=== PATIENT | female | born 1960 | race Caucasian/White ===

== ENCOUNTER → 2018-08-22 06:58 | Outpatient (CLI) | payer OTHER, SELFPAY ==
[2018-08-22 08:27] LABS: Alanine Aminotransferase 26 IU/L (9-52); Albumin 4.1 g/dL (3.5-5.0); Albumin Globulin Ratio 1.4 (1.0-2.8); Alkaline Phosphatase 91 U/L (38-126); Aspartate Aminotransferase 26 IU/L (14-36); Bilirubin Total 0.5 mg/dL (0.2-1.3); Blood Urea Nitrogen 14 mg/dL (7-17); Calcium 9.1 mg/dL (8.4-10.2); Carbon Dioxide 26 mmol/L (22-32); Chloride 103 mmol/L (98-107); Cholesterol 251 mg/dL (140-199); Estimated Glomerular Filt Rate > 60.0 mL/min (>60); Globulin 2.9 g/dL (1.7-4.1); Glucose 186 mg/dL (70-100); HDL Cholesterol 40 mg/dL (40-60); HEMOLYSIS < 15 (0-50); LDL Cholesterol Calculated 149 mg/dL (<100); Sodium 140 mmol/L (137-145); Triglycerides 309 mg/dL (35-150)
[2018-08-22 08:57] LABS: Creatinine Urine Random 51.9 mg/dL
[2018-08-22 09:12] LABS: Microalbumin Urine Random 31.4 mg/dL (0-1.6)
== END ==
PROVIDERS: PCP Family Medicine; Visit Provider Family Medicine
DX: E11.65 Type 2 diabetes mellitus with hyperglycemia (principal); E66.9 Obesity, unspecified; E78.5 Hyperlipidemia, unspecified; I10 Essential (primary) hypertension
CPT/HCPCS: 36415; 80053; 80061; 82043; 82570; 83036

== ENCOUNTER 2018-11-24 18:07 | Emergency (ER) | payer OTHER, SELFPAY ==
[2018-11-24 18:54] VITALS: BP 147/79; PULSE 88; RESP 18; TEMP 37.9; O2SAT 96; BMI 38.9
--- NOTE | 2018-11-24 21:44 | ED.SKABFB ---
HPI - Skin/Abscess/Foreign Bdy General Chief complaint: Skin/Abscess/Foreign Body Stated complaint: LEFT SIDE OF NECK HEAD SORE Time Seen by Provider: 11/24/18 21:43 Source: patient Mode of arrival: ambulatory Limitations: no limitations History of Present Illness HPI narrative: patient is a 58-year-old female who presents with neck swelling. she says it started yesterday with a small pimple it has doubled in size. No drainage. She does have low-grade fever here. It is non erythematous. She states that she does have a history of sepsis with group B strep from a vaginal source. MD complaint: abscess/boil Onset (ago): day(s) (2) Location: neck ( Posterior left) Severity: moderate Quality: aching Pain Consistency: constant Related Data Previous Rx's Medication Instructions Recorded simvastatin 20 mg PO QHS #90 tab 09/27/17 citalopram 40 mg PO Q DAY #90 tab 12/20/17 metformin 1,000 mg PO BIDCC #180 tab 04/15/18 glimepiride 4 mg tablet 8 mg PO Q DAY #180 tab 08/11/18 lisinopril 5 mg tablet 5 mg PO DAILY #90 tab 08/22/18 empagliflozin 10 mg tablet 10 mg PO DAILY #30 tab 09/03/18 oxycodone-acetaminophen [Percocet] 1 tab PO Q4-6H PRN #10 tab 11/25/18 sulfamethoxazole-trimethoprim 1 tab PO BID #14 tab 11/25/18 [Bactrim DS] Allergies Allergy/AdvReac Type Severity Reaction Status Date / Time No Known Drug Allergies Allergy Verified 11/24/18 18:59 Review of Systems Review of Systems GENERAL: Denies chills, fatigue, malaise, fever, sweats, travel HEENT: Denies sinus pain, ear pain, sore throat, difficulty swallowing, neck pain RESPIRATORY: Denies dyspnea, cough, wheezing, hemoptysis, sputum. CARDIOVASCULAR: Denies chest pain, palpitations, orthopnea, edema GASTROINTESTINAL: Denies nausea, vomiting, abdominal pain, diarrhea, constipation, melena. : Denies dysuria, frequency, incontinence, hematuria, urinary retention, flank pain. MUSCULOSKELETAL: Denies weakness, joint pain, or bony pain SKIN: see HPI NEUROLOGIC: Denies weakness, dizziness, headache, numbness, change in speech, confusion PSYCHIATRIC: No concerning psychosocial issues. 12 point review of systems is negative except for those stated above and HPI [facility] Medical History Depression (Chronic 1997) Diabetes mellitus (Chronic 2009) Hyperlipidemia (Chronic) Hypertriglyceridemia (Chronic) Obesity (Chronic) Shoulder pain (Chronic 2014) Ankle fracture (Resolved 1977) Chicken pox (Resolved 1967) Group B streptococcal infection (Resolved 04/2014) History of heavy periods (Resolved) History of heavy periods (Resolved 1979) Irregular periods/menstrual cycles (Resolved 1989) Kidney stones (Resolved 1999) Normal Papanicolaou smear (Resolved) Uterine cancer (Resolved 2005) Surgical History Anesthesia (Resolved) History of surgery (Resolved 04/2014) History of third molar tooth extraction (Resolved 1973) Status post hysterectomy (Resolved 09/2006) Family History Father Cancer Lung cancer Grandfather Smoker Heart disease Occupational exposure to environmental pollution Grandmother Cancer Mother Cancer Ovarian cancer Breast cancer Sister Age: 61 Heart disease History of heart bypass surgery Diabetes mellitus Social History Smoking Status: Never smoker Family History Father Cancer Lung cancer Grandfather Smoker Heart disease Occupational exposure to environmental pollution Grandmother Cancer Mother Cancer Ovarian cancer Breast cancer Sister Age: 61 Heart disease History of heart bypass surgery Diabetes mellitus Social History Smoking Status: Never smoker Exam Initial Vital Signs Initial Vital Signs: Vital Signs Temperature 100.3 F H 11/24/18 18:54 Pulse Rate 88 11/24/18 18:54 Respiratory Rate 18 11/24/18 18:54 Blood Pressure 147/79 H 11/24/18 18:54 Pulse Oximetry 96 11/24/18 18:54 GENERAL: Overweight well-appearing female no acute distress HEENT: Head atraumatic,EOMI, pupils reactive, CARDIOVASCULAR: Regular rate and rhythm without murmurs, rubs or gallops. RESPIRATORY: Breath sounds equal bilaterally, no wheezes rales or rhonchi. ABDOMEN: Soft, nontender. Normoactive bowel sounds all 4 quadrants. No guarding or rebound. EXTREMITIES: Normal range of motion, no clubbing or edema. Neurovascularly intact NEUROLOGICAL: Alert and oriented x4.Normal gait and speech. SKIN: swelling left posterior neck and base of skull 7 cm x 5 cm. Non erythematous it is fluctuant no induration. There is a small scab with minimal surrounding erythema to the scab no drainage. Procedures Abscess I/D Site: scalp Side (if applicable): left Local Anesthetic: lidocaine 2% and with epi Amount of anesthesia used (mL): 5 Technique: incised with #11 blade Amount of fluid expressed (mL): 1 Irrigation: No Packing used?: none Complications: pain and bleeding Course Orders Ordered: ED Orders 11/24/18 23:01 Blood Culture Stat Complete Blood Count AUTO DIFF Stat Comprehensive Metabolic Panel Stat Lactate (Lactic Acid) Stat Procalcitonin Stat 11/25/18 00:48 Wound Culture and Gram Stain Stat Discontinued Medications Sodium Chloride (Normal Saline 0.9%) 1,000 mls @ 1,000 mls/hr IV CONT PERICO Last Infusion: 11/25/18 00:48 Dose: 0 mls/hr Admin: 11/24/18 23:14 Dose: 1,000 mls/hr Ketorolac Tromethamine (Toradol) 30 mg IV NOW ONE Stop: 11/24/18 23:40 Last Admin: 11/24/18 23:43 Dose: 30 mg Oxycodone/Acetaminophen (Endocet 5/325 Prepack) 1 bottle MISC SEEINSTR ONE Stop: 11/25/18 00:24 Last Admin: 11/25/18 00:38 Dose: 1 bottle Trimethoprim/Sulfamethoxazole (Bactrim Ds Prepack) 1 bottle MISC SEEINSTR ONE Stop: 11/25/18 00:24 Last Admin: 11/25/18 00:38 Dose: 1 bottle Vital Signs - 8 hr 11/24/18 23:00 11/25/18 00:49 Temperature 98.4 F Pulse Rate 83 83 Respiratory Rate 18 16 Blood Pressure 126/66 Pulse Oximetry 99 99 MDM - Skin/Abscess/Foreign Bdy Lab Data Attestation: I reviewed the patient's lab results. Result diagrams: 11/24/18 23:01 11/24/18 23:01 Lab Results 11/24/18 11/24/18 11/24/18 Range/Units 23:01 23:01 23:01 WBC 9.9 (4.5-11.0) X10^3/uL RBC 4.59 (4.0-5.2) X10^6/uL Hgb 13.5 (12.0-16.0) g/dL Hct 39.9 (36-46) % MCV 87.0 (80-100) fL MCH 29.4 (26-34) PG MCHC 33.8 (30-36) % RDW 13.9 (11.6-14.8) % Plt Count 224 (150-400) X10^3/uL Neut % (Auto) 76.9 H (50-75) % Lymph % (Auto) 12.2 L (25-40) % [place] % (Auto) 6.7 (3-14) % Eos % (Auto) 3.4 (2-4) % Baso % (Auto) 0.8 (0-2) % Neut # (Auto) 7700 H (1736-4344) /uL Lymph # (Auto) 1200 (1623-8986) /uL [place] # (Auto) 700 (0-900) /uL Eos # (Auto) 300 (0-450) /uL Baso # (Auto) 100 (0-100) /uL Sodium 134 L (137-145) mmol/L Potassium 4.5 (3.4-5.1) mmol/L Chloride 99 (98-107) mmol/L Carbon Dioxide 27 (22-32) mmol/L BUN 18 H (7-17) mg/dL Creatinine 0.50 L (0.52-1.04) mg/dL Estimated GFR > 60.0 (>60) mL/min BUN/Creatinine Ratio 36.0 H (6-22) Glucose 192 H (70-100) mg/dL Lactate (0.7-2.1) mmol/L Calcium 9.5 (8.4-10.2) mg/dL Total Bilirubin 0.7 (0.2-1.3) mg/dL AST 24 (14-36) IU/L ALT 24 (9-52) IU/L Alkaline Phosphatase 91 (38-126) U/L Total Protein 7.4 (6.3-8.2) g/dL Albumin 4.2 (3.5-5.0) g/dL Globulin 3.2 (1.7-4.1) g/dL Albumin/Globulin Ratio 1.3 (1.0-2.8) Procalcitonin < 0.05 (<0.5) ng/mL 11/24/18 Range/Units 23:01 WBC (4.5-11.0) X10^3/uL RBC (4.0-5.2) X10^6/uL Hgb (12.0-16.0) g/dL Hct (36-46) % MCV (80-100) fL MCH (26-34) PG MCHC (30-36) % RDW (11.6-14.8) % Plt Count (150-400) X10^3/uL Neut % (Auto) (50-75) % Lymph % (Auto) (25-40) % [place] % (Auto) (3-14) % Eos % (Auto) (2-4) % Baso % (Auto) (0-2) % Neut # (Auto) (9540-5549) /uL Lymph # (Auto) (1465-3139) /uL [place] # (Auto) (0-900) /uL Eos # (Auto) (0-450) /uL Baso # (Auto) (0-100) /uL Sodium (137-145) mmol/L Potassium (3.4-5.1) mmol/L Chloride (98-107) mmol/L Carbon Dioxide (22-32) mmol/L BUN (7-17) mg/dL Creatinine (0.52-1.04) mg/dL Estimated GFR (>60) mL/min BUN/Creatinine Ratio (6-22) Glucose (70-100) mg/dL Lactate 1.2 (0.7-2.1) mmol/L Calcium (8.4-10.2) mg/dL Total Bilirubin (0.2-1.3) mg/dL AST (14-36) IU/L ALT (9-52) IU/L Alkaline Phosphatase (38-126) U/L Total Protein (6.3-8.2) g/dL Albumin (3.5-5.0) g/dL Globulin (1.7-4.1) g/dL Albumin/Globulin Ratio (1.0-2.8) Procalcitonin (<0.5) ng/mL MDM Narrative Medical decision making narrative: very minimal drainage from I&D. There was a small amount of pus which was sent for culture. Discussed with patient may need more time in in drainage at a later date. 2 different places were cut, And still no drainage. patient will be treated with antibiotics. She does not appear septic. I do suspect that there will be drainage from this area at some time. Discharge Plan Departure Patient Disposition: Home Clinical Impression: Abscess of skin and subcutaneous tissue Qualifiers: Site of cutaneous abscess: neck Qualified Code(s): L02.11 - Cutaneous abscess of neck Discharge Date/Time: 11/25/18 00:45 Interventions: ED Discharge Assessment Last Done: 11/25/18 00:49 Instructions: DI for Skin Abscess, DI for Incision and Drainage Activity Restrictions/Additional Instructions: *You have been diagnosed with Skin abscess incision and drainage *What to do: warm packs. This may need to be cut open again. Unfortunately no pus drainage at this time. *Continue to take medications as directed Bactrim 1 tab twice a day for 7 days--> FAXED TO [facility] Percocet 1 tab every 6 hr if needed for severe pain Motrin 600 mg every 6-8 hours if needed for [id number] *Follow up with your primary care provider in 2-3 days *Return to ER if you should have increasing redness, worsening pain, persistent fever or any new, worsening or concerning symptoms CONTROLLED SUBSTANCE DISCHARGE (Narcotoic/benzodiazepine/Flexeril/Phenergan) 1. You have been prescribed narcotic medications, it does have acetaminophen/Tylenol/paracetamol in it so do not take extra Tylenol or Tylenol containing products 2. Please understand that we cannot provide further refills of narcotics, benzodiazepines or controlled substances through the ED and her pain management will need to be through your provider. 3. While on these medications you cannot drive or operate heavy machinery. 4. You cannot sign legal documents or perform any duties such as this. 5. As long as you're taking opiate pain medications he should also be taking a stool softener such as Colace, Dulcolax, MiraLAX or prune juice, to help avoid constipation. Prescriptions: New sulfamethoxazole-trimethoprim [Bactrim DS] 800-160 mg tablet 1 tab PO BID Qty: 14 RF: 0 oxycodone-acetaminophen [Percocet] 5-325 mg tablet 1 tab PO Q4-6H PRN (Reason: pain) Qty: 10 RF: 0 No Action simvastatin 20 MG tablet 20 mg PO QHS Qty: 90 RF: 1 citalopram 40 MG tablet 40 mg PO Q DAY Qty: 90 RF: 3 metformin 1,000 mg tablet 1,000 mg PO BIDCC Qty: 180 RF: 2 glimepiride [Amaryl] 4 mg tablet 8 mg PO Q DAY Qty: 180 RF: 1 empagliflozin [Jardiance] 10 mg tablet 10 mg PO DAILY Qty: 30 RF: 11 lisinopril 5 mg tablet 5 mg PO DAILY Qty: 90 RF: 1 Referrals: Gia Michael DO [Primary Care Provider] - Stand Alone Forms: Work Release Note
[2018-11-24 23:00] VITALS: PULSE 83; RESP 18; O2SAT 99
[2018-11-24] MEDS: SODIUM CHLORIDE 0.9% 1,000 ML 1000 ML IV (23:14)
[2018-11-24 23:21] LABS: Add Manual Diff / Slide Review NO; Basophils Absolute Auto 100 /uL (0-100); Basophils Percent Auto 0.8 % (0-2); Eosinophils Absolute Auto 300 /uL (0-450); Eosinophils Percent Auto 3.4 % (2-4); Hematocrit 39.9 % (36-46); Hemoglobin 13.5 g/dL (12.0-16.0); Lymphocytes Absolute Auto 1200 /uL (1100-4500); Lymphocytes Percent Auto 12.2 % (25-40); Mean Corpuscular HGB Conc 33.8 % (30-36); Mean Corpuscular Hemoglobin 29.4 PG (26-34); Monocytes Absolute Auto 700 /uL (0-900); Monocytes Percent Auto 6.7 % (3-14); Neutrophils Absolute Auto 7700 /uL (1500-7000); Neutrophils Percent Auto 76.9 % (50-75); Platelet Count 224 X10^3/uL (150-400); Red Blood Cell Count 4.59 X10^6/uL (4.0-5.2); Red Cell Distribution Width 13.9 % (11.6-14.8); White Blood Cell Count 9.9 X10^3/uL (4.5-11.0)
[2018-11-24 23:26] LABS: Lactate (Lactic Acid) 1.2 mmol/L (0.7-2.1)
[2018-11-24 23:32] LABS: Alanine Aminotransferase 24 IU/L (9-52); Albumin 4.2 g/dL (3.5-5.0); Albumin Globulin Ratio 1.3 (1.0-2.8); Alkaline Phosphatase 91 U/L (38-126); Aspartate Aminotransferase 24 IU/L (14-36); Bilirubin Total 0.7 mg/dL (0.2-1.3); Blood Urea Nitrogen 18 mg/dL (7-17); Calcium 9.5 mg/dL (8.4-10.2); Carbon Dioxide 27 mmol/L (22-32); Chloride 99 mmol/L (98-107); Estimated Glomerular Filt Rate > 60.0 mL/min (>60); Globulin 3.2 g/dL (1.7-4.1); Glucose 192 mg/dL (70-100); HEMOLYSIS 46 (0-50); Potassium 4.5 mmol/L (3.4-5.1); Sodium 134 mmol/L (137-145); Total Protein 7.4 g/dL (6.3-8.2)
[2018-11-24] MEDS: KETOROLAC 60 MG/2 ML VIAL 30 MG IV (23:43)
[2018-11-24 23:47] LABS: Procalcitonin < 0.05 ng/mL (<0.5)
[2018-11-25] MEDS: TRIMETH/SULFA 160/800 PREPACK 1 BOTTLE MISC (00:38)
[2018-11-25] MEDS: OXYCODONE/APAP 5/325 PREPACK 1 BOTTLE MISC (00:38)
[2018-11-25 00:49] VITALS: BP 126/66; PULSE 83; RESP 16; TEMP 36.9; O2SAT 99
== END 2018-11-25 00:45 | disposition home or self-care (01) ==
PROVIDERS: Emergency Provider Emergency Medicine; PCP Family Medicine
DX: L02.11 Cutaneous abscess of neck (principal)
CPT/HCPCS: 10060; 36591; 80053; 83605; 84145; 85025; 87040; 87070; 87077; 87147; 87186; 87205; 96361; 96374; 99283; 99284; J1885

== ENCOUNTER → 2018-11-28 09:18 | Outpatient (CLI) | payer OTHER, SELFPAY ==
[2018-11-28 10:43] LABS: Hemoglobin A1C% w Est Avg Glu 10.6 % (4.0-6.0)
== END ==
PROVIDERS: PCP Family Medicine; Visit Provider Family Medicine
DX: E11.65 Type 2 diabetes mellitus with hyperglycemia (principal)
CPT/HCPCS: 36415; 83036

== ENCOUNTER 2019-06-30 08:25 | Emergency (ER) | payer OTHER, SELFPAY ==
[2019-06-30 08:25] VITALS: BP 179/76; PULSE 74; RESP 18; TEMP 36.6; O2SAT 98; BMI 38.9
--- NOTE | 2019-06-30 08:32 | ED.BACK ---
HPI - Back Pain/Injury General Chief Complaint: Back Pain/Injury Stated Complaint: sciatic pain Time Seen by Provider: 06/30/19 08:32 Source: patient Mode of arrival: Ambulatory Limitations: no limitations History of Present Illness HPI Narrative: Patient is a 59-year-old morbidly obese female with history of diabetes presenting with back pain radiating down her right leg ongoing for the last 4 days. She denies any specific injury or event. She said this has happened to her once before. She has been taking ibuprofen 800 mg without any relief she has been trying to do some stretches and use a heating pad. She denies any changes in bowel or bladder movements. MD Complaint: back pain Onset (ago): day(s) (4) Similar Symptoms Previously: Yes Location: lumbar spine (Right buttock area) Severity: moderate Quality: sharp Associated symptoms: denies other symptoms Related Data Previous Rx's Medication Instructions Recorded glimepiride 4 mg tablet 8 mg PO Q DAY #180 tab 08/11/18 lisinopril 5 mg tablet 5 mg PO DAILY #90 tab 08/22/18 oxycodone-acetaminophen [Percocet] 1 tab PO Q4-6H PRN #10 tab 11/25/18 sulfamethoxazole-trimethoprim 1 tab PO BID #14 tab 11/25/18 [Bactrim DS] empagliflozin 10 mg tablet 10 mg PO DAILY #30 tab 01/16/19 citalopram 40 mg tablet 20 mg PO Q DAY #30 tab 05/04/19 metformin 1,000 mg PO BIDCC #180 tab 05/04/19 simvastatin 20 mg tablet 20 mg PO QHS #90 tab 05/15/19 cyclobenzaprine 5 mg PO TID PRN #10 tab 06/30/19 oxycodone-acetaminophen [Percocet] 1 tab PO Q6H PRN #10 tab 06/30/19 Allergies Allergy/AdvReac Type Severity Reaction Status Date / Time No Known Drug Allergies Allergy Verified 12/05/18 08:45 Review of Systems Review of Systems Narrative: GENERAL: Denies chills, fatigue, malaise, fever, sweats, travel HEENT: Denies sinus pain, ear pain, sore throat, difficulty swallowing, neck pain RESPIRATORY: Denies dyspnea, cough, wheezing, hemoptysis, sputum. CARDIOVASCULAR: Denies chest pain, palpitations, orthopnea, edema GASTROINTESTINAL: Denies nausea, vomiting, abdominal pain, diarrhea, constipation, melena. : Denies dysuria, frequency, incontinence, hematuria, urinary retention, flank pain. MUSCULOSKELETAL: See HPI SKIN: No rash, no erythema, no pruritus NEUROLOGIC: Denies weakness, dizziness, headache, numbness, change in speech, confusion PSYCHIATRIC: No concerning psychosocial issues. 12 point review of systems is negative except for those stated above and HPI PFSH Medical History Ankle fracture (Resolved 1977) Chicken pox (Resolved 1967) Depression (Chronic 1997) Diabetes mellitus (Chronic 2009) Group B streptococcal infection (Resolved 04/2014) History of heavy periods (Resolved) History of heavy periods (Resolved 1979) Hyperlipidemia (Chronic) Hypertriglyceridemia (Chronic) Irregular periods/menstrual cycles (Resolved 1989) Kidney stones (Resolved 1999) Normal Papanicolaou smear (Resolved) Obesity (Chronic) Shoulder pain (Chronic 2014) Uterine cancer (Resolved 2005) Surgical History Anesthesia (Resolved) History of surgery (Resolved 04/2014) History of third molar tooth extraction (Resolved 1973) Status post hysterectomy (Resolved 09/2006) Family History Father Cancer Lung cancer Grandfather Smoker Heart disease Occupational exposure to environmental pollution Grandmother Cancer Mother Cancer Ovarian cancer Breast cancer Sister Age: 62 Heart disease History of heart bypass surgery Diabetes mellitus Social History Smoking Status: Never smoker Family History Father Cancer Lung cancer Grandfather Smoker Heart disease Occupational exposure to environmental pollution Grandmother Cancer Mother Cancer Ovarian cancer Breast cancer Sister Age: 62 Heart disease History of heart bypass surgery Diabetes mellitus Social History Smoking Status: Never smoker Exam Initial Vital Signs Initial Vital Signs: Vital Signs Temperature 98 F 06/30/19 08:25 Pulse Rate 74 06/30/19 08:25 Respiratory Rate 18 06/30/19 08:25 Blood Pressure 179/76 H 06/30/19 08:25 Pulse Oximetry 98 06/30/19 08:25 GENERAL: Tearful awake alert female HEENT: Head atraumatic,EOMI, pupils reactive, face symmetric, moist mucous membranes CARDIOVASCULAR: Regular rate and rhythm without murmurs, rubs or gallops. RESPIRATORY: Breath sounds equal bilaterally, no wheezes rales or rhonchi. ABDOMEN: Soft, nontender. Normoactive bowel sounds all 4 quadrants. No guarding or rebound. BACK: No vertebral tenderness no step-offs. She has pain in her right buttock radiating down her right leg. Sensation in lower extremities intact. Pain radiates laterally. She is able to lift her right leg over 30 degree EXTREMITIES: Normal range of motion, no clubbing or edema. Neurovascularly intact NEUROLOGICAL: Alert and oriented x4.Normal gait and speech. Cranial nerves II through XII grossly intact. SKIN: Warm, dry, no laceration, no petechiae, no rashes or lesions. Course Orders Ordered: Discontinued Medications Cyclobenzaprine HCl (Flexeril) 5 mg PO NOW ONE Stop: 06/30/19 08:40 Last Admin: 06/30/19 09:13 Dose: 5 mg Documented by: TERENCE Morphine Sulfate (Morphine) 4 mg SUBCUT NOW ONE Stop: 06/30/19 08:40 Last Admin: 06/30/19 09:13 Dose: 4 mg Documented by: TERENCE Vital Signs Vital signs: Vital Signs - 8 hr 06/30/19 08:25 06/30/19 09:47 Temperature 98 F Pulse Rate 74 68 Respiratory Rate 18 14 Blood Pressure 179/76 H Blood Pressure [Left Arm] 143/71 H Pulse Oximetry 98 100 MDM - Back Pain/Injury MDM Narrative Medical decision making narrative: Patient is ambulatory in the ED. Pain is much better controlled after morphine and Flexeril. Discharge Plan Departure Patient Disposition: Home Clinical Impression: Acute back pain with sciatica Qualifiers: Laterality: right Qualified Code(s): M54.41 - Lumbago with sciatica, right side Discharge Date/Time: 06/30/19 09:59 Instructions: DI for Back Pain With Sciatica Activity Restrictions/Additional Instructions: *You have been diagnosed with back pain with sciatic *What to do: Continue with stretching, heating pad, light activity. No strenuous activity no heavy lifting more than 10 lb. *Continue to take medications as directed--> PRESCRIPTION SENT TO [facility] IN [place] Percocet 1 tablet every 6 hours if needed for severe pain Flexeril 1 tablet every 8 hours if needed for muscle spasm *Follow up with your primary care provider in 2-3 days *Return to ER if you should have weakness in legs changes in urine or bowel habits, or any new, worsening or concerning symptoms CONTROLLED SUBSTANCE DISCHARGE (Narcotoic/benzodiazepine/Flexeril/Phenergan) 1. You have been prescribed narcotic medications, it does have acetaminophen/Tylenol/paracetamol in it so do not take extra Tylenol or Tylenol containing products 2. Please understand that we cannot provide further refills of narcotics, benzodiazepines or controlled substances through the ED and her pain management will need to be through your provider. 3. While on these medications you cannot drive or operate heavy machinery. 4. You cannot sign legal documents or perform any duties such as this. 5. As long as you're taking opiate pain medications he should also be taking a stool softener such as Colace, Dulcolax, MiraLAX or prune juice, to help avoid constipation. Prescriptions: New oxycodone-acetaminophen [Percocet] 5-325 mg tablet 1 tab PO Q6H PRN (Reason: pain) Qty: 10 RF: 0 cyclobenzaprine 5 mg tablet 5 mg PO TID PRN (Reason: muscle spasm) Qty: 10 RF: 0 No Action glimepiride [Amaryl] 4 mg tablet 8 mg PO Q DAY Qty: 180 RF: 1 Jardiance 10 mg tablet 10 mg PO DAILY Qty: 30 RF: 11 metformin 1,000 mg tablet 1,000 mg PO BIDCC Qty: 180 RF: 2 citalopram 40 mg tablet 20 mg PO Q DAY Qty: 30 RF: 1 simvastatin 20 mg tablet 20 mg PO QHS Qty: 90 RF: 1 lisinopril 5 mg tablet 5 mg PO DAILY Qty: 90 RF: 1 sulfamethoxazole-trimethoprim [Bactrim DS] 800-160 mg tablet 1 tab PO BID Qty: 14 RF: 0 oxycodone-acetaminophen [Percocet] 5-325 mg tablet 1 tab PO Q4-6H PRN (Reason: pain) Qty: 10 RF: 0 Referrals: Gia Michael DO [Primary Care Provider] - Stand Alone Forms: Work Release Note
[2019-06-30] MEDS: MORPHINE 4 MG/ML INJ SUBCUT (09:13)
[2019-06-30] MEDS: CYCLOBENZAPRINE 5 MG TABLET PO (09:13)
[2019-06-30 09:47] VITALS: BP 143/71; PULSE 68; RESP 14; O2SAT 100
== END 2019-06-30 09:59 | disposition home or self-care (01) ==
PROVIDERS: Emergency Provider Emergency Medicine; PCP Family Medicine
DX: M54.41 Lumbago with sciatica, right side (principal)
CPT/HCPCS: 99282; 99283; J2270

== ENCOUNTER → 2019-07-03 09:10 | Outpatient (CLI) | payer OTHER, SELFPAY ==
--- NOTE | 2019-07-03 09:13 | DI.RAD.S_ITS ---
PROCEDURE: XR LUMBAR SPINE 2-3V INDICATIONS: sciatica TECHNIQUE: 3 views of the lumbar spine were acquired. COMPARISON: None. FINDINGS: Bones: No fracture or focal osseous destruction. Grade 1 anterolisthesis of L4-L5. Multilevel degenerative endplate sclerosis and spurring. Diffuse facet arthropathy. Mild narrowing of the L1-L2 disc space moderate narrowing of the L5-S1 disc space. Bilateral hip degeneration. Degenerative sclerosis and spurring of the sacroiliac joints bilaterally. Soft tissues: Overlying bowel gas pattern is normal. No suspicious soft tissue calcifications. IMPRESSION: Grade 1 anterolisthesis of L4 and L5. Mild lumbar spondylosis most pronounced at L5-S1 as above. Facet arthropathy Dictated by: Maxwell Gonzalez M.D. on 07/03/2019 at 9:52 Approved by: Maxwell Gonzalez M.D. on 07/03/2019 at 9:55
== END ==
PROVIDERS: PCP Family Medicine; Visit Provider Hospitalist
DX: M47.26 Other spondylosis with radiculopathy, lumbar region (principal); M16.0 Bilateral primary osteoarthritis of hip; M43.16 Spondylolisthesis, lumbar region
CPT/HCPCS: 72100

== ENCOUNTER 2019-08-31 15:15 | Outpatient (RCR) | payer OTHER, SELFPAY ==
--- NOTE | 2019-07-06 11:57 | PT.OIE ---
Current Diagnoses Lumbago with sciatica, right side (07/06/19) Difficulty in walking, not elsewhere classified (07/06/19) Abnormal posture (07/06/19) Weakness (07/06/19) Past Medical History (Last Reviewed 07/03/19 @ 09:10 by Madalyn Caldwell MD) Ankle fracture (Resolved 1977) Chicken pox (Resolved 1967) Depression (Chronic 1997) Diabetes mellitus (Chronic 2009) Group B streptococcal infection (Resolved 04/2014) History of heavy periods (Resolved) History of heavy periods (Resolved 1979) Hyperlipidemia (Chronic) Hypertriglyceridemia (Chronic) Irregular periods/menstrual cycles (Resolved 1989) Kidney stones (Resolved 1999) Normal Papanicolaou smear (Resolved) Obesity (Chronic) Shoulder pain (Chronic 2014) Uterine cancer (Resolved 2005) Past Surgical History (Last Reviewed 07/03/19 @ 09:10 by Madalyn Caldwell MD) Anesthesia (Resolved) History of surgery (Resolved 04/2014) History of third molar tooth extraction (Resolved 1973) Status post hysterectomy (Resolved 09/2006) Visit Care Team Role Provider Type Gia Michael DO Primary Care Provider Physician Specialty: Family Practice Address: [address] [place] [address], [address], [facility] Email: [email or web address] Madalyn Caldwell MD Attending Provider Physician Specialty: Internal Medicine Address: [address] [place] [address], [facility] Email: Physical Therapy Initial Evaluation PT-OP-A Visit Information Start: 07/06/19 08:10 Freq: Status: Active Protocol: Document 07/06/19 09:51 [facility] (Rec: 07/06/19 11:46 [facility] [id number]) Out-Patient Physical Therapy Visit Information Visit Information Visit Type Initial Evaluation Visit Start Time 09:48 Visit Stop Time 10:42 Total Visit Minutes 54 Visit Number 10/26 Number of ACCOUNTS RECEIVABLE PROCESSOR Visits 0 PT-OP-B Current Condition Start: 07/06/19 08:10 Freq: Status: Active Protocol: Document 07/06/19 09:51 [facility] (Rec: 07/06/19 11:46 [facility] [id number]) Current Condition History of Current Condition Onset Date 12 days ago History of Current Condition Pt reports pain started mildly and has just gotten worse over time. She got an xray , which shre report did not show much. She got massage but it didn't help. Pt reports she doesn't know what started the pain. Pt reports she had this pain about 3 years ago, which PT helped. Pt reprost since then and up til 2 weeks ago, she had a clunk in her hip with WB that went away. 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 Pt reprots she was unable to do all of the med passing d/t pain. Pt reports she had to have CG help with walking pain meds. Prior Treatments and Tests Xray IMPRESSION: Grade 1 anterolisthesis of L4 and L5. Mild lumbar spondylosis most pronounced at L5-S1 as above. Facet arthropathy (copied from report by radiologist) Treatment Goals Patient/Caregiver Goals Be able to work, be able to stand at the kitchen sink and be able to walk (3-4 miles per pedometer at work) PT-OP-C Subjective Start: 07/06/19 08:10 Freq: Status: Active Protocol: Document 07/06/19 09:51 [facility] (Rec: 07/06/19 11:46 [facility] [id number]) Patient Questionnaires Oswestry Low Back Index Oswestry Score 66 Oswestry Impairment 60 to 79% Impaired (Score 60- 79) OP-PT Pain Assessment Location R leg Pain Location Details buttocks to lat leg to knee then ant sepulveda & foot & ankle Intensity 8 Scale Used Numeric (1 - 10) Description Dull Description- Other worst:9/10; best: Frequency Constant Radiating Location tingling into ant sepulveda and foot and ankle Pain Aggravating Factors Standing,Walking,Bending, Lifting,Coughing Other Pain Aggravating Factors hard to wipe to bend to go to the bathroom, bridging, rolling Pain Alleviating Factors Cold,Medication,Lying Supine PT-OP-F Manual Assessment Start: 07/06/19 08:10 Freq: Status: Active Protocol: Document 07/06/19 09:51 [facility] (Rec: 07/06/19 11:46 [facility] [id number]) Manual Assessments Soft Tissue Assessment Soft Tissue Mobility Assessment significant tightness and tenderness to light touch on ITB R, tightness in glutes, piriformis, HS R & QL R PT-OP-G Mobility & Gait Start: 07/06/19 08:10 Freq: Status: Active Protocol: Document 07/06/19 09:51 [facility] (Rec: 07/06/19 11:46 [facility] [id number]) OP Gait Assessment Comments Gait Comments Pt amb with dec RLE push off and dec stance time on RLE . Lat leaning during gait PT-OP-J Posture/Palpation/Skin Start: 07/06/19 08:10 Freq: Status: Active Protocol: Document 07/06/19 09:51 [facility] (Rec: 07/06/19 11:46 [facility] [id number]) Posture Evaluation [facility] Postural Classification System Lumbar Protective Mechanism Left AP 0 Lumbar Protective Mechanism Right AP 0 Lumbar Protective Mechanism Left PA 0 Lumbar Protective Mechanism Right PA 0 PT-OP-L Special Tests Start: 07/06/19 08:10 Freq: Status: Active Protocol: Document 07/06/19 09:51 [facility] (Rec: 07/06/19 11:46 [facility] [id number]) Special Tests Lumbar Spine Special Tests Straight Leg Raise Test Results about 70 deg HS tightness R; 90 deg L PT-OP-M Strength Start: 07/06/19 08:10 Freq: Status: Active Protocol: Document 07/06/19 09:51 [facility] (Rec: 07/06/19 11:46 [facility] [id number]) Hip Strength Hip Manual Muscle Testing Left Flexion (L2) 5 Normal Abduction 5 Normal External Rotation 5 Normal Internal Rotation 5 Normal Right Flexion (L2) 3+ Fair+ Abduction 3 Fair External Rotation 3+ Fair+ Internal Rotation 3+ Fair+ Knee Strength Knee Manual Muscle Testing Left Flexion (S2) 5 Normal Extension (L3) 4+ Good+ Right Flexion (S2) 3+ Fair+ Extension (L3) 3+ Fair+ Ankle/Foot Strength Ankle and Foot Manual Muscle Testing Left Dorsiflexion (L4) 5 Normal Plantarflexion (S1) 5 Normal Right Dorsiflexion (L4) 4 Good Plantarflexion (S1) 5 Normal Comments seated PF test PT-OP-Q Treatments Start: 07/06/19 08:10 Freq: Status: Active Protocol: Document 07/06/19 09:51 [facility] (Rec: 07/06/19 11:46 [facility] [id number]) Therapeutic Exercises Supine Exercises bridge Supine Exercise Name attempted with core brace but too painful stretches Supine Exercise Name piriformis, figure 4, SKTC & HS stretch w/ DF/PF Side bilateral Reps/Minutes 30 sec ea Manual Therapy Treatment Soft Tissue Mobilization glutes/piriformis Body Location R Mobilization Type Strumming,Sustained Pressure Intensity/Depth Moderate Body Position Sidelying ITB Body Location R Mobilization Type Rolling Intensity/Depth Superficial Body Position Sidelying PT-OP-R Modalities Start: 07/06/19 08:10 Freq: Status: Active Protocol: Document 07/06/19 09:51 [facility] (Rec: 07/06/19 11:46 [facility] [id number]) Electric Stimulation Electric Stimulation Pre-Modulated Body Location 2 pads on gluteal region R Duration (Minutes) 10 Patient Position Hooklying Combined With Heat/Cold Cold Pack PT-OP-T Assessment and Plan Start: 07/06/19 08:10 Freq: Status: Active Protocol: Document 07/06/19 09:51 [facility] (Rec: 07/06/19 11:46 [facility] [id number]) Physical Therapy Assessment Rehab Potential Rehabilitation Potential Good Goals ROM Short Term Goal (STG) Pt will have equal hip flexibility and ROM between sides in order to dec stress to lumbosacral spine & pelvis. STG Duration 08/18/19 functional ability Short Term Goal (STG) Pt will be able to stand 30 min with no more than 1 point inc in pain on VAS scale. STG Duration 08/05/19 [facility] Goal (LTG) Pt will be able to stand and ambualte as required by her job without inc in pain greater than 2/10. LTG Duration 09/05/19 strength Short Term Goal (STG) Pt will be indep with HEP STG Duration 08/05/19 [facility] Goal (LTG) Pt will be able to score a 3/5 on LPM and 5/5 LE strength testing in order to allow her to do her job and typical daily activities without pain. LTG Duration 09/05/19 Assessment Summary Assessment Pt presents with acute flare up of RLE neural pain starting at her R hip, which is a recurring pain for this patient. She has done exercises and managed this pain in the past without issue , and there is no specific reason for onset per pt. 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 She would benefit from skilled pt for pain management, strengthening, postural training, improvement of ROM & flexibility and improvement of gait mechanics. Physical Therapy Plan Frequency and Duration Frequency of Treatment 2x/Week Duration of Treatment 2 months Plan of Care Start Date 07/06/19 Plan of Care End Date 09/05/19 Therapeutic Interventions Therapeutic Interventions Aquatic Therapy,Balance Training,Gait Training,Home Exercise Program,Joint Mobilizations,Manual Therapy, Neuromuscular Re-education, Patient/Caregiver Education, Self-Care/Home Management,Soft Tissue Mobilization,Taping, Therapeutic Activities, Therapeutic Exercises Modalities Cold Pack/Ice Massage,Electric Stimulation,Hot Packs, Infrared Therapy,Traction- Mechanical,Ultrasound Next Visit Focus/Plan Next Note Type Treatment Note Next Visit Plan hip ROM exercises, start core progression in supine, discuss pool therapy. STM to QL, glutes & ITB
--- NOTE | 2019-07-06 11:57 | PT.OPPOC ---
Current Diagnoses Lumbago with sciatica, right side (07/06/19) Difficulty in walking, not elsewhere classified (07/06/19) Abnormal posture (07/06/19) Weakness (07/06/19) Visit Care Team Role Provider Type Gia Michael DO Primary Care Provider Physician Specialty: Family Practice Address: [address] [place] [address], [address], [address] Email: [email or web address] Madalyn Caldwell MD Attending Provider Physician Specialty: Internal Medicine Address: [address] [place] [address], [id number] Email: Plan Of Care PT-OP-T Assessment and Plan Start: 07/06/19 08:10 Freq: Status: Active Protocol: Document 07/06/19 09:51 [facility] (Rec: 07/06/19 11:46 [facility] [id number]) Physical Therapy Assessment Rehab Potential Rehabilitation Potential Good Goals ROM Short Term Goal (STG) Pt will have equal hip flexibility and ROM between sides in order to dec stress to lumbosacral spine & pelvis. STG Duration 08/18/19 functional ability Short Term Goal (STG) Pt will be able to stand 30 min with no more than 1 point inc in pain on VAS scale. STG Duration 08/05/19 Intermediate Goal (LTG) Pt will be able to stand and ambualte as required by her job without inc in pain greater than 2/10. LTG Duration 09/05/19 strength Short Term Goal (STG) Pt will be indep with HEP STG Duration 08/05/19 Intermediate Goal (LTG) Pt will be able to score a 3/5 on LPM and 5/5 LE strength testing in order to allow her to do her job and typical daily activities without pain. LTG Duration 09/05/19 Assessment Summary Assessment Pt presents with acute flare up of RLE neural pain starting at her R hip, which is a recurring pain for this patient. She has done exercises and managed this pain in the past without issue , and there is no specific reason for onset per pt. 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 She would benefit from skilled pt for pain management, strengthening, postural training, improvement of ROM & flexibility and improvement of gait mechanics. Physical Therapy Plan Frequency and Duration Frequency of Treatment 2x/Week Duration of Treatment 2 months Plan of Care Start Date 07/06/19 Plan of Care End Date 09/05/19 Therapeutic Interventions Therapeutic Interventions Aquatic Therapy,Balance Training,Gait Training,Home Exercise Program,Joint Mobilizations,Manual Therapy, Neuromuscular Re-education, Patient/Caregiver Education, Self-Care/Home Management,Soft Tissue Mobilization,Taping, Therapeutic Activities, Therapeutic Exercises Modalities Cold Pack/Ice Massage,Electric Stimulation,Hot Packs, Infrared Therapy,Traction- Mechanical,Ultrasound Next Visit Focus/Plan Next Note Type Treatment Note Next Visit Plan hip ROM exercises, start core progression in supine, discuss pool therapy. STM to QL, glutes & ITB Plan of Care Dates Plan of Care Start Date 07/06/19 Plan of Care End Date 09/05/19
--- NOTE | 2019-07-09 14:40 | PT.OTN ---
Current Diagnoses Lumbago with sciatica, right side (07/09/19) Difficulty in walking, not elsewhere classified (07/09/19) Abnormal posture (07/09/19) Weakness (07/09/19) Physical Therapy Treatment Note PT-OP-A Visit Information Start: 07/06/19 08:10 Freq: Status: Active Protocol: Document 07/09/19 09:47 [facility] (Rec: 07/09/19 10:38 [facility] [id number]) Out-Patient Physical Therapy Visit Information Visit Information Visit Type Treatment Note Visit Start Time 09:48 Visit Stop Time 10:30 Total Visit Minutes 58 Visit Number 11/26 Number of BENDING ROLL OPERATOR Visits 0 PT-OP-B Current Condition Start: 07/06/19 08:10 Freq: Status: Active Protocol: Document 07/06/19 09:51 [facility] (Rec: 07/06/19 11:46 [facility] [id number]) Current Condition History of Current Condition Onset Date 12 days ago History of Current Condition Pt reports pain started mildly and has just gotten worse over time. She got an xray , which shre report did not show much. She got massage but it didn't help. Pt reports she doesn't know what started the pain. Pt reports she had this pain about 3 years ago, which PT helped. Pt reprost since then and up til 2 weeks ago, she had a clunk in her hip with WB that went away. 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 Pt reports she had to have help with walking pain meds. Prior Treatments and Tests Xray IMPRESSION: Grade 1 anterolisthesis of L4 and L5. Mild lumbar spondylosis most pronounced at L5-S1 as above. Facet arthropathy (copied from report by radiologist) Treatment Goals Patient/Caregiver Goals Be able to work, be able to stand at the kitchen sink and be able to walk (3-4 miles per pedometer at work) PT-OP-C Subjective Start: 07/06/19 08:10 Freq: Status: Active Protocol: Document 07/09/19 09:47 [facility] (Rec: 07/09/19 10:38 [facility] [id number]) OP-PT Subjective Patient Comments Patient Comments No change PT-OP-F Manual Assessment Start: 07/06/19 08:10 Freq: Status: Active Protocol: Document 07/06/19 09:51 [facility] (Rec: 07/06/19 11:46 [facility] [id number]) Manual Assessments Soft Tissue Assessment Soft Tissue Mobility Assessment significant tightness and tenderness to light touch on ITB R, tightness in glutes, piriformis, HS R & QL R PT-OP-G Mobility & Gait Start: 07/06/19 08:10 Freq: Status: Active Protocol: Document 07/06/19 09:51 [facility] (Rec: 07/06/19 11:46 [facility] [id number]) OP Gait Assessment Comments Gait Comments Pt amb with dec RLE push off and dec stance time on RLE . Lat leaning during gait PT-OP-J Posture/Palpation/Skin Start: 07/06/19 08:10 Freq: Status: Active Protocol: Document 07/06/19 09:51 [facility] (Rec: 07/06/19 11:46 [facility] [id number]) Posture Evaluation [facility] Postural Classification System Lumbar Protective Mechanism Left AP 0 Lumbar Protective Mechanism Right AP 0 Lumbar Protective Mechanism Left PA 0 Lumbar Protective Mechanism Right PA 0 PT-OP-L Special Tests Start: 07/06/19 08:10 Freq: Status: Active Protocol: Document 07/06/19 09:51 [facility] (Rec: 07/06/19 11:46 [facility] [id number]) Special Tests Lumbar Spine Special Tests Straight Leg Raise Test Results about 70 deg HS tightness R; 90 deg L PT-OP-M Strength Start: 07/06/19 08:10 Freq: Status: Active Protocol: Document 07/06/19 09:51 [facility] (Rec: 07/06/19 11:46 [facility] [id number]) Hip Strength Hip Manual Muscle Testing Left Flexion (L2) 5 Normal Abduction 5 Normal External Rotation 5 Normal Internal Rotation 5 Normal Right Flexion (L2) 3+ Fair+ Abduction 3 Fair External Rotation 3+ Fair+ Internal Rotation 3+ Fair+ Knee Strength Knee Manual Muscle Testing Left Flexion (S2) 5 Normal Extension (L3) 4+ Good+ Right Flexion (S2) 3+ Fair+ Extension (L3) 3+ Fair+ Ankle/Foot Strength Ankle and Foot Manual Muscle Testing Left Dorsiflexion (L4) 5 Normal Plantarflexion (S1) 5 Normal Right Dorsiflexion (L4) 4 Good Plantarflexion (S1) 5 Normal Comments seated PF test PT-OP-Q Treatments Start: 07/06/19 08:10 Freq: Status: Active Protocol: Document 07/09/19 09:47 [facility] (Rec: 07/09/19 14:34 [facility] [id number]) Therapeutic Exercises Supine Exercises TA Supine Exercise Name TA tightening/awareness training bridge Supine Exercise Name Able to do 1-2x after STM stretches Supine Exercise Name DKTC Sidelying Exercises TA tightening Sidelying Exercise Name TA tightening/awareness training Side bilateral Therapeutic Activity Therapeutic Activity Sitting posture Name Sit posture training Manual Therapy Treatment Soft Tissue Mobilization Low back Body Location R Mobilization Type Strumming Intensity/Depth Moderate Body Position Prone glutes/piriformis Body Location QL and Upper Gluteal Mobilization Type Strumming,Sustained Pressure Intensity/Depth Moderate Body Position Prone Joint Mobilizations Sacrum Joint Iliosacral Direction Correcting a L rotated sacrum Body Position Prone Innominate Joint Innominate rotation Direction Correction for a R anteriorly rot/L posteriorly rot innominate Body Position Supine Comments Painful bilaterally but L>R; therefore force of contraction and mobilization limited by pain. Self-Care/Home Management Treatment Education Patient Education Joint Protection Other Education Discussed sitting posture and corrections to improve posture and weightbearing on Ischial tuberosities. Activities Self-Care/Home Management Activities Discussed pt's current home self mobilization technique (R hip flex with L LE axial extension) and recommended opposite technique. Discussed possible change in pt's previous correction techniques and precautions to possible change in innominate positions . PT-OP-R Modalities Start: 07/06/19 08:10 Freq: Status: Active Protocol: Document 07/09/19 09:47 [facility] (Rec: 07/09/19 14:34 [facility] [id number]) Electric Stimulation Electric Stimulation Interferential Current (IFC) Body Location Crossing at Sacrum Duration (Minutes) 8 Target/Sweep Sweep Patient Position Prone Combined With Heat/Cold Cold Pack Comments Frequency varied with time on stimulation, from 36 to 26. Hot Pack/Cold Pack Treatment Cold Pack Location LB & R hip Patient Position Prone Treatment Duration (minutes) 8 Comments Cryotherapy in conjunction with E-Stim. PT-OP-T Assessment and Plan Start: 07/06/19 08:10 Freq: Status: Active Protocol: Document 07/09/19 09:47 [facility] (Rec: 07/09/19 14:34 [email or web address] [id number]) Physical Therapy Assessment Assessment Summary Assessment R leg long in supine. MET correction did not correct, but much improved after STM (R innominate still anteriorly rotated). Pt may have an outflare on the right, but difficulty to assess due to excessive soft tissue. Pt did not tolerate EStim today, possibly due to prone position or because of use of IFC vs Premod. Pt has poor core stability and will need further posture and core strengthening. Physical Therapy Plan Frequency and Duration Frequency of Treatment 2x/Week Duration of Treatment 2 months Plan of Care Start Date 07/06/19 Plan of Care End Date 09/05/19 Next Visit Focus/Plan Next Note Type Treatment Note Next Visit Plan Assess pelvic symmetry, continue STM to QL, glutes & ITB. Start hip ROM exercises, review and progress core strengthening, discuss pool therapy. Avoid EStim in prone .
--- NOTE | 2019-07-14 14:50 | PT-OP ANOTE ---
Talked to patient via phone after cancellation d/t pt request. Pt reports pain was so severe starting yesterday that today she had to cancel PT appt d/t being unable to up long enough to shower. Pt reports she cannot tolerate ice greater than 5 min and it is not helping. Notes pain with stretches. Pt instructed to no longer do stretches until she comes again and since icing was painful during the act and did not help after, pt instructed to try heat. Pt instructed to position in most comfortable position but to get up and move occasionally for small bouts and change to other comfortable positions. Pt instructed to call back with any further questions.
--- NOTE | 2019-07-21 14:23 | PT.OTN ---
Current Diagnoses Lumbago with sciatica, right side (07/21/19) Difficulty in walking, not elsewhere classified (07/21/19) Abnormal posture (07/21/19) Weakness (07/21/19) Physical Therapy Treatment Note PT-OP-A Visit Information Start: 07/06/19 08:10 Freq: Status: Active Protocol: Document 07/21/19 07:43 [facility] (Rec: 07/21/19 08:20 [facility] [id number]) Out-Patient Physical Therapy Visit Information Visit Information Visit Type Treatment Note Visit Start Time 07:31 Visit Stop Time 08:31 Total Visit Minutes 60 Visit Number 12/24 Number of RELAYS DRAFTSPERSON Visits 0 PT-OP-B Current Condition Start: 07/06/19 08:10 Freq: Status: Active Protocol: Document 07/06/19 09:51 [facility] (Rec: 07/06/19 11:46 [facility] [id number]) Current Condition History of Current Condition Onset Date 12 days ago History of Current Condition Pt reports pain started mildly and has just gotten worse over time. She got an xray , which shre report did not show much. She got massage but it didn't help. Pt reports she doesn't know what started the pain. Pt reports she had this pain about 3 years ago, which PT helped. Pt reprost since then and up til 2 weeks ago, she had a clunk in her hip with WB that went away. 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 Pt reprots she was unable to do all of the med passing d/t pain. Pt reports she had to have help with walking pain meds. Prior Treatments and Tests Xray IMPRESSION: Grade 1 anterolisthesis of L4 and L5. Mild lumbar spondylosis most pronounced at L5-S1 as above. Facet arthropathy (copied from report by radiologist) Treatment Goals Patient/Caregiver Goals Be able to work, be able to stand at the kitchen sink and be able to walk (3-4 miles per pedometer at work) PT-OP-C Subjective Start: 07/06/19 08:10 Freq: Status: Active Protocol: Document 07/21/19 07:43 [facility] (Rec: 07/21/19 14:23 [facility] [id number]) OP-PT Subjective Patient Comments Patient Comments Pt reports she feels better since the call. Notes she has only done a couple partial days of work where she sat a lot. PT-OP-F Manual Assessment Start: 07/06/19 08:10 Freq: Status: Active Protocol: Document 07/06/19 09:51 [facility] (Rec: 07/06/19 11:46 [facility] [id number]) Manual Assessments Soft Tissue Assessment Soft Tissue Mobility Assessment significant tightness and tenderness to light touch on ITB R, tightness in glutes, piriformis, HS R & QL R PT-OP-G Mobility & Gait Start: 07/06/19 08:10 Freq: Status: Active Protocol: Document 07/06/19 09:51 [facility] (Rec: 07/06/19 11:46 [facility] [id number]) OP Gait Assessment Comments Gait Comments Pt amb with dec RLE push off and dec stance time on RLE . Lat leaning during gait PT-OP-J Posture/Palpation/Skin Start: 07/06/19 08:10 Freq: Status: Active Protocol: Document 07/06/19 09:51 [facility] (Rec: 07/06/19 11:46 [facility] [id number]) Posture Evaluation Felipe Postural Classification System Lumbar Protective Mechanism Left AP 0 Lumbar Protective Mechanism Right AP 0 Lumbar Protective Mechanism Left PA 0 Lumbar Protective Mechanism Right PA 0 PT-OP-L Special Tests Start: 07/06/19 08:10 Freq: Status: Active Protocol: Document 07/06/19 09:51 [facility] (Rec: 07/06/19 11:46 [facility] [id number]) Special Tests Lumbar Spine Special Tests Straight Leg Raise Test Results about 70 deg HS tightness R; 90 deg L PT-OP-M Strength Start: 07/06/19 08:10 Freq: Status: Active Protocol: Document 07/06/19 09:51 [facility] (Rec: 07/06/19 11:46 [facility] [id number]) Hip Strength Hip Manual Muscle Testing Left Flexion (L2) 5 Normal Abduction 5 Normal External Rotation 5 Normal Internal Rotation 5 Normal Right Flexion (L2) 3+ Fair+ Abduction 3 Fair External Rotation 3+ Fair+ Internal Rotation 3+ Fair+ Knee Strength Knee Manual Muscle Testing Left Flexion (S2) 5 Normal Extension (L3) 4+ Good+ Right Flexion (S2) 3+ Fair+ Extension (L3) 3+ Fair+ Ankle/Foot Strength Ankle and Foot Manual Muscle Testing Left Dorsiflexion (L4) 5 Normal Plantarflexion (S1) 5 Normal Right Dorsiflexion (L4) 4 Good Plantarflexion (S1) 5 Normal Comments seated PF test PT-OP-Q Treatments Start: 07/06/19 08:10 Freq: Status: Active Protocol: Document 07/21/19 07:43 [facility] (Rec: 07/21/19 08:20 [facility] [id number]) Therapeutic Exercises Supine Exercises TA Supine Exercise Name TA tightening/awareness training Reps/Minutes prn for rito horse feeling in lower leg Comments demonstrated how pt can self- stretch at home prn stretches Supine Exercise Name piriformis, figure 4, SKTC & HS stretch w/ DF/PF Side bilateral Reps/Minutes 30 sec ea Manual Therapy Treatment Soft Tissue Mobilization glutes/piriformis Body Location R glut and piriformis Mobilization Type Myofascial Release,Rolling, Strumming,Sustained Pressure Intensity/Depth Moderate Body Position L sidelying Joint Mobilizations Hip Joint R hip Direction inferior/lateral/long Body Position Supine Manual Traction Hip Details long axis traction Body Position Supine Reps/Duration bilateral Self-Care/Home Management Treatment Education Patient Education Joint Protection,Pain Management,Posture Other Education Discussed and demonstrated proper use of pillows to facilitate proper sleeping posture in sidelying and supine positions for reduced pain and stiffness in joints in the night and increase pt comfort. PT-OP-R Modalities Start: 07/06/19 08:10 Freq: Status: Active Protocol: Document 07/21/19 07:43 [facility] (Rec: 07/21/19 14:23 [facility] [id number]) Hot Pack/Cold Pack Treatment Hot Pack Location R hip/thigh Patient Position Sidelying Treatment Duration (minutes) 15 PT-OP-T Assessment and Plan Start: 07/06/19 08:10 Freq: Status: Active Protocol: Document 07/21/19 07:43 [facility] (Rec: 07/21/19 08:20 [facility] [id number]) Physical Therapy Assessment Goals ROM Short Term Goal (STG) Pt will have equal hip flexibility and ROM between sides in order to dec stress to lumbosacral spine & pelvis. STG Duration 08/18/19 functional ability Short Term Goal (STG) Pt will be able to stand 30 min with no more than 1 point inc in pain on VAS scale. STG Duration 08/05/19 Towel Folder Goal (LTG) Pt will be able to stand and ambualte as required by her job without inc in pain greater than 2/10. LTG Duration 09/05/19 strength Short Term Goal (STG) Pt will be indep with HEP STG Duration 08/05/19 Snf Goal (LTG) Pt will be able to score a 3/5 on LPM and 5/5 LE strength testing in order to allow her to do her job and typical daily activities without pain. LTG Duration 09/05/19 Assessment Summary Assessment Pt had no inc in pain until trying hip mobs. She was able to do stretches w/o pain when cued re:comfortable range Physical Therapy Plan Frequency and Duration Frequency of Treatment 2x/Week Duration of Treatment 2 months Plan of Care Start Date 07/06/19 Plan of Care End Date 09/05/19 Next Visit Focus/Plan Next Note Type Treatment Note Next Visit Plan Assess pelvic symmetry, continue STM to QL, glutes & ITB. Start hip ROM exercises, review and progress core strengthening, discuss pool therapy. Avoid EStim in prone .
--- NOTE | 2019-07-24 09:06 | PT.OTN ---
Current Diagnoses Lumbago with sciatica, right side (07/24/19) Difficulty in walking, not elsewhere classified (07/24/19) Abnormal posture (07/24/19) Weakness (07/24/19) Physical Therapy Treatment Note PT-OP-A Visit Information Start: 07/06/19 08:10 Freq: Status: Active Protocol: Document 07/24/19 09:06 [facility] (Rec: 07/24/19 12:22 [facility] [id number]) Out-Patient Physical Therapy Visit Information Visit Information Visit Type Treatment Note Visit Start Time 08:15 Visit Stop Time 09:06 Total Visit Minutes 51 Visit Number 01/24 Number of BROKERAGE COORDINATOR Visits 1 PT-OP-B Current Condition Start: 07/06/19 08:10 Freq: Status: Active Protocol: Document 07/06/19 09:51 [facility] (Rec: 07/06/19 11:46 [facility] [id number]) Current Condition History of Current Condition Onset Date 12 days ago History of Current Condition Pt reports pain started mildly and has just gotten worse over time. She got an xray , which shre report did not show much. She got massage but it didn't help. Pt reports she doesn't know what started the pain. Pt reports she had this pain about 3 years ago, which PT helped. Pt reprost since then and up til 2 weeks ago, she had a clunk in her hip with WB that went away. 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 Pt reports she had to have help with walking pain meds. Prior Treatments and Tests Xray IMPRESSION: Grade 1 anterolisthesis of L4 and L5. Mild lumbar spondylosis most pronounced at L5-S1 as above. Facet arthropathy (copied from report by radiologist) Treatment Goals Patient/Caregiver Goals Be able to work, be able to stand at the kitchen sink and be able to walk (3-4 miles per pedometer at work) PT-OP-C Subjective Start: 07/06/19 08:10 Freq: Status: Active Protocol: Document 07/24/19 09:06 [facility] (Rec: 07/24/19 12:22 [facility] [id number]) OP-PT Subjective Patient Comments Patient Comments Pt reports 8/10 pain in R posterolateral hip and glut that radiates down lateral and anterior thigh, calf to bottom of her foot, feels like stepping on something both nothing is in my shoe. PT-OP-F Manual Assessment Start: 07/06/19 08:10 Freq: Status: Active Protocol: Document 07/06/19 09:51 [facility] (Rec: 07/06/19 11:46 [facility] [id number]) Manual Assessments Soft Tissue Assessment Soft Tissue Mobility Assessment significant tightness and tenderness to light touch on ITB R, tightness in glutes, piriformis, HS R & QL R PT-OP-G Mobility & Gait Start: 07/06/19 08:10 Freq: Status: Active Protocol: Document 07/06/19 09:51 [facility] (Rec: 07/06/19 11:46 [facility] [id number]) OP Gait Assessment Comments Gait Comments Pt amb with dec RLE push off and dec stance time on RLE . Lat leaning during gait PT-OP-J Posture/Palpation/Skin Start: 07/06/19 08:10 Freq: Status: Active Protocol: Document 07/06/19 09:51 [facility] (Rec: 07/06/19 11:46 [facility] [id number]) Posture Evaluation Felipe Postural Classification System Lumbar Protective Mechanism Left AP 0 Lumbar Protective Mechanism Right AP 0 Lumbar Protective Mechanism Left PA 0 Lumbar Protective Mechanism Right PA 0 PT-OP-L Special Tests Start: 07/06/19 08:10 Freq: Status: Active Protocol: Document 07/06/19 09:51 [facility] (Rec: 07/06/19 11:46 [facility] [id number]) Special Tests Lumbar Spine Special Tests Straight Leg Raise Test Results about 70 deg HS tightness R; 90 deg L PT-OP-M Strength Start: 07/06/19 08:10 Freq: Status: Active Protocol: Document 07/06/19 09:51 [facility] (Rec: 07/06/19 11:46 [facility] [id number]) Hip Strength Hip Manual Muscle Testing Left Flexion (L2) 5 Normal Abduction 5 Normal External Rotation 5 Normal Internal Rotation 5 Normal Right Flexion (L2) 3+ Fair+ Abduction 3 Fair External Rotation 3+ Fair+ Internal Rotation 3+ Fair+ Knee Strength Knee Manual Muscle Testing Left Flexion (S2) 5 Normal Extension (L3) 4+ Good+ Right Flexion (S2) 3+ Fair+ Extension (L3) 3+ Fair+ Ankle/Foot Strength Ankle and Foot Manual Muscle Testing Left Dorsiflexion (L4) 5 Normal Plantarflexion (S1) 5 Normal Right Dorsiflexion (L4) 4 Good Plantarflexion (S1) 5 Normal Comments seated PF test PT-OP-Q Treatments Start: 07/06/19 08:10 Freq: Status: Active Protocol: Document 07/24/19 09:06 [facility] (Rec: 07/24/19 12:22 SP [id number]) Therapeutic Exercises Supine Exercises Sciatic nerve floss Side right Reps/Minutes x10 Hs stretch Supine Exercise Name HS and ITB Equipment Used strap Reps/Minutes 30 sec Comments trialed ITB but discomfort so stopped. stretches Supine Exercise Name piriformis, figure 4, SKTC & HS stretch w/ DF/PF Side bilateral Reps/Minutes 30 sec ea Sitting Exercises sciatic nerve floss Side right Reps/Minutes x10 Comments keep head and toes moving in same direction stretches Sitting Exercise Name piriformis, figure 4, SKTC & HS stretch w/ DF/PF Reps/Minutes 30 sec each Comments at EOM table Manual Therapy Treatment Soft Tissue Mobilization glutes/piriformis Body Location R glut and piriformis Mobilization Type Myofascial Release,Rolling, Strumming,Sustained Pressure Intensity/Depth Moderate Body Position L sidelying ITB Body Location R ITB Mobilization Type Myofascial Release,Strumming, Sustained Pressure,Other Intensity/Depth Moderate Body Position L Sidelying Comments passive and sustained compression with clamshell RLE AROM Joint Mobilizations Hip Joint R hip Direction inferior/lateral/long Body Position Supine Comments Pt found long leg pul most beneficial. Sacrum Joint Iliosacral Direction Correcting a L rotated sacrum Body Position Supine Comments muscle energy, resisted heel press and abd with knee/hip 90 * postioning. Manual Traction Hip Details long axis traction Body Position Supine Reps/Duration bilateral Nerve Glides sciatic Body Position Sitting Reps/Duration x10 Comments cued head and foot movement same direction PT-OP-R Modalities Start: 07/06/19 08:10 Freq: Status: Active Protocol: Document 07/24/19 09:06 [facility] (Rec: 07/24/19 12:22 SP [email or web address]) Hot Pack/Cold Pack Treatment Hot Pack Location R hip/thigh Patient Position Sidelying Treatment Duration (minutes) 15 PT-OP-T Assessment and Plan Start: 07/06/19 08:10 Freq: Status: Active Protocol: Document 07/24/19 09:06 [facility] (Rec: 07/24/19 12:22 SP [email or web address]) Physical Therapy Assessment Assessment Summary Assessment Pt reported increased hip during tx, stretching did not relieve complaints. Instruduced sciatic nerve flossing assistance with radiculopathy with little improvement. cued for comfortable range and provided different positioning to assist relief. Pt requested MHP end of tx which helped pain decrease to 4/10. Educated patient to incorporate the stretches into her work day with rest breaks from standing which patient stated ususally helps. Physical Therapy Plan Frequency and Duration Frequency of Treatment 2x/Week Duration of Treatment 2 months Plan of Care Start Date 07/06/19 Plan of Care End Date 09/05/19 Next Visit Focus/Plan Next Note Type Treatment Note Next Visit Plan Assess pelvic symmetry, continue STM to QL, glutes & ITB. Start hip ROM exercises, review and progress core strengthening, discuss pool therapy. Avoid EStim in prone .
--- NOTE | 2019-07-28 15:56 | PT.OTN ---
Current Diagnoses Lumbago with sciatica, right side (07/28/19) Difficulty in walking, not elsewhere classified (07/28/19) Abnormal posture (07/28/19) Weakness (07/28/19) Physical Therapy Treatment Note PT-OP-A Visit Information Start: 07/06/19 08:10 Freq: Status: Active Protocol: Document 07/28/19 13:45 [facility] (Rec: 07/28/19 15:56 [facility] [id number]) Out-Patient Physical Therapy Visit Information Visit Information Visit Type Treatment Note Visit Start Time 13:45 Visit Stop Time 14:44 Total Visit Minutes 59 Visit Number 02/23 Number of DEMURRAGE MAN Visits 0 PT-OP-B Current Condition Start: 07/06/19 08:10 Freq: Status: Active Protocol: Document 07/06/19 09:51 [facility] (Rec: 07/06/19 11:46 [facility] [id number]) Current Condition History of Current Condition Onset Date 12 days ago History of Current Condition Pt reports pain started mildly and has just gotten worse over time. She got an xray , which shre report did not show much. She got massage but it didn't help. Pt reports she doesn't know what started the pain. Pt reports she had this pain about 3 years ago, which PT helped. Pt reprost since then and up til 2 weeks ago, she had a clunk in her hip with WB that went away. 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 Pt reports she had to have help with walking pain meds. Prior Treatments and Tests Xray IMPRESSION: Grade 1 anterolisthesis of L4 and L5. Mild lumbar spondylosis most pronounced at L5-S1 as above. Facet arthropathy (copied from report by radiologist) Treatment Goals Patient/Caregiver Goals Be able to work, be able to stand at the kitchen sink and be able to walk (3-4 miles per pedometer at work) PT-OP-C Subjective Start: 07/06/19 08:10 Freq: Status: Active Protocol: Document 07/28/19 13:45 [facility] (Rec: 07/28/19 15:56 [facility] [id number]) OP-PT Subjective Patient Comments Patient Comments Pt reports AMs are sachin worst. Today was a tough day as she was on her feet a lot PT-OP-F Manual Assessment Start: 07/06/19 08:10 Freq: Status: Active Protocol: Document 07/06/19 09:51 [facility] (Rec: 07/06/19 11:46 [facility] [id number]) Manual Assessments Soft Tissue Assessment Soft Tissue Mobility Assessment significant tightness and tenderness to light touch on ITB R, tightness in glutes, piriformis, HS R & QL R PT-OP-G Mobility & Gait Start: 07/06/19 08:10 Freq: Status: Active Protocol: Document 07/06/19 09:51 [facility] (Rec: 07/06/19 11:46 [facility] [id number]) OP Gait Assessment Comments Gait Comments Pt amb with dec RLE push off and dec stance time on RLE . Lat leaning during gait PT-OP-J Posture/Palpation/Skin Start: 07/06/19 08:10 Freq: Status: Active Protocol: Document 07/06/19 09:51 [facility] (Rec: 07/06/19 11:46 [facility] [id number]) Posture Evaluation Felipe Postural Classification System Lumbar Protective Mechanism Left AP 0 Lumbar Protective Mechanism Right AP 0 Lumbar Protective Mechanism Left PA 0 Lumbar Protective Mechanism Right PA 0 PT-OP-L Special Tests Start: 07/06/19 08:10 Freq: Status: Active Protocol: Document 07/06/19 09:51 [facility] (Rec: 07/06/19 11:46 [facility] [id number]) Special Tests Lumbar Spine Special Tests Straight Leg Raise Test Results about 70 deg HS tightness R; 90 deg L PT-OP-M Strength Start: 07/06/19 08:10 Freq: Status: Active Protocol: Document 07/06/19 09:51 [facility] (Rec: 07/06/19 11:46 [facility] [id number]) Hip Strength Hip Manual Muscle Testing Left Flexion (L2) 5 Normal Abduction 5 Normal External Rotation 5 Normal Internal Rotation 5 Normal Right Flexion (L2) 3+ Fair+ Abduction 3 Fair External Rotation 3+ Fair+ Internal Rotation 3+ Fair+ Knee Strength Knee Manual Muscle Testing Left Flexion (S2) 5 Normal Extension (L3) 4+ Good+ Right Flexion (S2) 3+ Fair+ Extension (L3) 3+ Fair+ Ankle/Foot Strength Ankle and Foot Manual Muscle Testing Left Dorsiflexion (L4) 5 Normal Plantarflexion (S1) 5 Normal Right Dorsiflexion (L4) 4 Good Plantarflexion (S1) 5 Normal Comments seated PF test PT-OP-Q Treatments Start: 07/06/19 08:10 Freq: Status: Active Protocol: Document 07/28/19 13:45 [facility] (Rec: 07/28/19 15:56 [facility] [id number]) Therapeutic Exercises Supine Exercises sciatic n glide Side right Reps/Minutes 10 Habd Side bilateral Equipment Used L3 Reps/Minutes 10 Comments focus on core-stopped d/t pain hip flexor stretch Supine Exercise Name L knee to chest for modified jose luis Side right Reps/Minutes 3x30 sec Comments tried jose luis test but painful TA Supine Exercise Name heel slides, BKFO, march Side bilateral Reps/Minutes 10 ea Comments focus on Tabd contraction Manual Therapy Treatment Soft Tissue Mobilization iliacus Body Location R Mobilization Type Sustained Pressure Intensity/Depth Moderate Body Position Supine Low back Body Location R QL Mobilization Type Rolling Intensity/Depth Moderate Body Position Sidelying glutes/piriformis Body Location R glut and piriformis Mobilization Type Myofascial Release,Rolling, Strumming,Sustained Pressure Intensity/Depth Moderate Body Position L sidelying PT-OP-R Modalities Start: 07/06/19 08:10 Freq: Status: Active Protocol: Document 07/28/19 13:45 [facility] (Rec: 07/28/19 15:56 [facility] [id number]) Hot Pack/Cold Pack Treatment Hot Pack Location r lumbar & R hip Patient Position Sidelying Treatment Duration (minutes) 15 PT-OP-T Assessment and Plan Start: 07/06/19 08:10 Freq: Status: Active Protocol: Document 07/28/19 13:45 [facility] (Rec: 07/28/19 15:56 [facility] [id number]) Physical Therapy Assessment Goals ROM Short Term Goal (STG) Pt will have equal hip flexibility and ROM between sides in order to dec stress to lumbosacral spine & pelvis. STG Duration 08/18/19 functional ability Short Term Goal (STG) Pt will be able to stand 30 min with no more than 1 point inc in pain on VAS scale. STG Duration 08/05/19 Obstetrics Nurse Goal (LTG) Pt will be able to stand and ambualte as required by her job without inc in pain greater than 2/10. LTG Duration 09/05/19 strength Short Term Goal (STG) Pt will be indep with HEP STG Duration 08/05/19 Fpc Goal (LTG) Pt will be able to score a 3/5 on LPM and 5/5 LE strength testing in order to allow her to do her job and typical daily activities without pain. LTG Duration 09/05/19 Assessment Summary Assessment Pt tolerated treatment with min inc pain. Sciatic n glides improved hip pain. Pt had significant tightness in QL today. Physical Therapy Plan Frequency and Duration Frequency of Treatment 2x/Week Duration of Treatment 2 months Plan of Care Start Date 07/06/19 Plan of Care End Date 09/05/19 Next Visit Focus/Plan Next Note Type Treatment Note Next Visit Plan Assess pelvic symmetry, continue STM to QL, glutes & ITB. Start hip ROM exercises, review and progress core strengthening, discuss pool therapy. Avoid EStim in prone .
--- NOTE | 2019-08-03 15:45 | PT.OTN ---
Current Diagnoses Lumbago with sciatica, right side (08/03/19) Difficulty in walking, not elsewhere classified (08/03/19) Abnormal posture (08/03/19) Weakness (08/03/19) Physical Therapy Treatment Note PT-OP-A Visit Information Start: 07/06/19 08:10 Freq: Status: Active Protocol: Document 08/03/19 14:27 [facility] (Rec: 08/03/19 15:45 [facility] [id number]) Out-Patient Physical Therapy Visit Information Visit Information Visit Type Treatment Note Visit Start Time 14:30 Visit Stop Time 15:15 Total Visit Minutes 45 Visit Number 03/26 Number of PACKAGE CRIMPER Visits 0 PT-OP-B Current Condition Start: 07/06/19 08:10 Freq: Status: Active Protocol: Document 07/06/19 09:51 [facility] (Rec: 07/06/19 11:46 [facility] [id number]) Current Condition History of Current Condition Onset Date 12 days ago History of Current Condition Pt reports pain started mildly and has just gotten worse over time. She got an xray , which shre report did not show much. She got massage but it didn't help. Pt reports she doesn't know what started the pain. Pt reports she had this pain about 3 years ago, which PT helped. Pt reprost since then and up til 2 weeks ago, she had a clunk in her hip with WB that went away. 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 Pt reprots she was unable to do all of the med passing d/t pain. Pt reports she had to have help with walking pain meds. Prior Treatments and Tests Xray IMPRESSION: Grade 1 anterolisthesis of L4 and L5. Mild lumbar spondylosis most pronounced at L5-S1 as above. Facet arthropathy (copied from report by radiologist) Treatment Goals Patient/Caregiver Goals Be able to work, be able to stand at the kitchen sink and be able to walk (3-4 miles per pedometer at work) PT-OP-C Subjective Start: 07/06/19 08:10 Freq: Status: Active Protocol: Document 08/03/19 14:27 [facility] (Rec: 08/03/19 15:45 [facility] [id number]) OP-PT Subjective Patient Comments Patient Comments Pt reports this AM was the worst by the time she got into the shower. Better now. Has been working at her desk today . PT-OP-F Manual Assessment Start: 07/06/19 08:10 Freq: Status: Active Protocol: Document 07/06/19 09:51 [facility] (Rec: 07/06/19 11:46 [facility] [id number]) Manual Assessments Soft Tissue Assessment Soft Tissue Mobility Assessment significant tightness and tenderness to light touch on ITB R, tightness in glutes, piriformis, HS R & QL R PT-OP-G Mobility & Gait Start: 07/06/19 08:10 Freq: Status: Active Protocol: Document 07/06/19 09:51 [facility] (Rec: 07/06/19 11:46 [facility] [id number]) OP Gait Assessment Comments Gait Comments Pt amb with dec RLE push off and dec stance time on RLE . Lat leaning during gait PT-OP-J Posture/Palpation/Skin Start: 07/06/19 08:10 Freq: Status: Active Protocol: Document 07/06/19 09:51 [facility] (Rec: 07/06/19 11:46 [facility] [id number]) Posture Evaluation [facility] Postural Classification System Lumbar Protective Mechanism Left AP 0 Lumbar Protective Mechanism Right AP 0 Lumbar Protective Mechanism Left PA 0 Lumbar Protective Mechanism Right PA 0 PT-OP-L Special Tests Start: 07/06/19 08:10 Freq: Status: Active Protocol: Document 07/06/19 09:51 [facility] (Rec: 07/06/19 11:46 [facility] [id number]) Special Tests Lumbar Spine Special Tests Straight Leg Raise Test Results about 70 deg HS tightness R; 90 deg L PT-OP-M Strength Start: 07/06/19 08:10 Freq: Status: Active Protocol: Document 07/06/19 09:51 [facility] (Rec: 07/06/19 11:46 [facility] [id number]) Hip Strength Hip Manual Muscle Testing Left Flexion (L2) 5 Normal Abduction 5 Normal External Rotation 5 Normal Internal Rotation 5 Normal Right Flexion (L2) 3+ Fair+ Abduction 3 Fair External Rotation 3+ Fair+ Internal Rotation 3+ Fair+ Knee Strength Knee Manual Muscle Testing Left Flexion (S2) 5 Normal Extension (L3) 4+ Good+ Right Flexion (S2) 3+ Fair+ Extension (L3) 3+ Fair+ Ankle/Foot Strength Ankle and Foot Manual Muscle Testing Left Dorsiflexion (L4) 5 Normal Plantarflexion (S1) 5 Normal Right Dorsiflexion (L4) 4 Good Plantarflexion (S1) 5 Normal Comments seated PF test PT-OP-Q Treatments Start: 07/06/19 08:10 Freq: Status: Active Protocol: Document 08/03/19 14:27 [facility] (Rec: 08/03/19 15:45 [facility] [id number]) Therapeutic Exercises Supine Exercises LTR Supine Exercise Name focus on segmental control Side bilateral Reps/Minutes 10 abdomenal series Supine Exercise Name flex Side bilateral Reps/Minutes 15 sec x2 TA Supine Exercise Name SLR Side bilateral Reps/Minutes 10 Comments focus on Tabd contraction Sidelying Exercises abd Sidelying Exercise Name focus on neutral position Side right Reps/Minutes 12 ER Sidelying Exercise Name clamshell Side right Reps/Minutes 12 Therapeutic Activity Therapeutic Activity posture Name standing posture progressed into to wt shifts w/wt accpetances Manual Therapy Treatment Soft Tissue Mobilization Low back Body Location R QL Mobilization Type Rolling Intensity/Depth Moderate Body Position Sidelying glutes/piriformis Body Location R glut and piriformis Mobilization Type Myofascial Release,Rolling, Strumming,Sustained Pressure Intensity/Depth Moderate Body Position L sidelying ITB Body Location R ITB Mobilization Type Myofascial Release,Strumming, Sustained Pressure,Other Intensity/Depth Moderate Body Position L Sidelying Comments passive and sustained compression with clamshell RLE AROM Self-Care/Home Management Treatment Education Other Education Discussion about options with sleepign including towel under side and pillow in front under arms & pillow or towel under abdomen PT-OP-R Modalities Start: 07/06/19 08:10 Freq: Status: Active Protocol: Document 07/28/19 13:45 [facility] (Rec: 07/28/19 15:56 [facility] [id number]) Hot Pack/Cold Pack Treatment Hot Pack Location r lumbar & R hip Patient Position Sidelying Treatment Duration (minutes) 15 PT-OP-T Assessment and Plan Start: 07/06/19 08:10 Freq: Status: Active Protocol: Document 08/03/19 14:27 [facility] (Rec: 08/03/19 15:45 [facility] [id number]) Physical Therapy Assessment Goals ROM Short Term Goal (STG) Pt will have equal hip flexibility and ROM between sides in order to dec stress to lumbosacral spine & pelvis. STG Duration 08/18/19 functional ability Short Term Goal (STG) Pt will be able to stand 30 min with no more than 1 point inc in pain on VAS scale. STG Duration 08/05/19 Rough Patcher Goal (LTG) Pt will be able to stand and ambualte as required by her job without inc in pain greater than 2/10. LTG Duration 09/05/19 strength Short Term Goal (STG) Pt will be indep with HEP STG Duration 08/05/19 Rough Patcher Goal (LTG) Pt will be able to score a 3/5 on LPM and 5/5 LE strength testing in order to allow her to do her job and typical daily activities without pain. LTG Duration 09/05/19 Assessment Summary Assessment Pt reported min c/o pain in R hip with standing today for posture and wt shifts. Improved posture with cueing. Pt able to tolerate progression of core exercises and would benefit from written progression of HEP next session if able to tolerate more difficult exercises. Physical Therapy Plan Frequency and Duration Frequency of Treatment 2x/Week Duration of Treatment 2 months Plan of Care Start Date 07/06/19 Plan of Care End Date 09/05/19 Next Visit Focus/Plan Next Note Type Treatment Note Next Visit Plan PNF for post depression & ant elevation, cont to work on hip abd strength & progress supine core stability; add progressed core exercsies to HEP
--- NOTE | 2019-08-12 16:00 | PT.OTN ---
Current Diagnoses Lumbago with sciatica, right side (08/12/19) Difficulty in walking, not elsewhere classified (08/12/19) Abnormal posture (08/12/19) Weakness (08/12/19) Physical Therapy Treatment Note PT-OP-A Visit Information Start: 07/06/19 08:10 Freq: Status: Active Protocol: Document 08/12/19 14:56 [facility] (Rec: 08/12/19 16:00 [facility] [id number]) Out-Patient Physical Therapy Visit Information Visit Information Visit Type Treatment Note Visit Start Time 15:17 Visit Stop Time 16:15 Total Visit Minutes 58 Visit Number 04/25 Number of FOREST MANAGEMENT PROFESSOR Visits 0 PT-OP-B Current Condition Start: 07/06/19 08:10 Freq: Status: Active Protocol: Document 07/06/19 09:51 [facility] (Rec: 07/06/19 11:46 [facility] [id number]) Current Condition History of Current Condition Onset Date 12 days ago History of Current Condition Pt reports pain started mildly and has just gotten worse over time. She got an xray , which shre report did not show much. She got massage but it didn't help. Pt reports she doesn't know what started the pain. Pt reports she had this pain about 3 years ago, which PT helped. Pt reprost since then and up til 2 weeks ago, she had a clunk in her hip with WB that went away. 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 Pt reports she had to have help with walking pain meds. Prior Treatments and Tests Xray IMPRESSION: Grade 1 anterolisthesis of L4 and L5. Mild lumbar spondylosis most pronounced at L5-S1 as above. Facet arthropathy (copied from report by radiologist) Treatment Goals Patient/Caregiver Goals Be able to work, be able to stand at the kitchen sink and be able to walk (3-4 miles per pedometer at work) PT-OP-C Subjective Start: 07/06/19 08:10 Freq: Status: Active Protocol: Document 08/12/19 14:56 [facility] (Rec: 08/12/19 16:00 [facility] [id number]) OP-PT Subjective Patient Comments Patient Comments Pt reports she rotated when sitting in a cart at the [employer] store and felt her back pain. Feels like she is improving. Patient Reported Progress Improving PT-OP-F Manual Assessment Start: 07/06/19 08:10 Freq: Status: Active Protocol: Document 07/06/19 09:51 [facility] (Rec: 07/06/19 11:46 [facility] [id number]) Manual Assessments Soft Tissue Assessment Soft Tissue Mobility Assessment significant tightness and tenderness to light touch on ITB R, tightness in glutes, piriformis, HS R & QL R PT-OP-G Mobility & Gait Start: 07/06/19 08:10 Freq: Status: Active Protocol: Document 07/06/19 09:51 [facility] (Rec: 07/06/19 11:46 [facility] [id number]) OP Gait Assessment Comments Gait Comments Pt amb with dec RLE push off and dec stance time on RLE . Lat leaning during gait PT-OP-J Posture/Palpation/Skin Start: 07/06/19 08:10 Freq: Status: Active Protocol: Document 07/06/19 09:51 [facility] (Rec: 07/06/19 11:46 [facility] [id number]) Posture Evaluation [facility] Postural Classification System Lumbar Protective Mechanism Left AP 0 Lumbar Protective Mechanism Right AP 0 Lumbar Protective Mechanism Left PA 0 Lumbar Protective Mechanism Right PA 0 PT-OP-L Special Tests Start: 07/06/19 08:10 Freq: Status: Active Protocol: Document 07/06/19 09:51 [facility] (Rec: 07/06/19 11:46 [facility] [id number]) Special Tests Lumbar Spine Special Tests Straight Leg Raise Test Results about 70 deg HS tightness R; 90 deg L PT-OP-M Strength Start: 07/06/19 08:10 Freq: Status: Active Protocol: Document 07/06/19 09:51 [facility] (Rec: 07/06/19 11:46 [facility] [id number]) Hip Strength Hip Manual Muscle Testing Left Flexion (L2) 5 Normal Abduction 5 Normal External Rotation 5 Normal Internal Rotation 5 Normal Right Flexion (L2) 3+ Fair+ Abduction 3 Fair External Rotation 3+ Fair+ Internal Rotation 3+ Fair+ Knee Strength Knee Manual Muscle Testing Left Flexion (S2) 5 Normal Extension (L3) 4+ Good+ Right Flexion (S2) 3+ Fair+ Extension (L3) 3+ Fair+ Ankle/Foot Strength Ankle and Foot Manual Muscle Testing Left Dorsiflexion (L4) 5 Normal Plantarflexion (S1) 5 Normal Right Dorsiflexion (L4) 4 Good Plantarflexion (S1) 5 Normal Comments seated PF test PT-OP-Q Treatments Start: 07/06/19 08:10 Freq: Status: Active Protocol: Document 08/12/19 14:56 [facility] (Rec: 08/12/19 16:00 [facility] [id number]) Therapeutic Exercises Supine Exercises hip flex Supine Exercise Name 1. attempt alt december but unable; 2. dying bugs Side bilateral Reps/Minutes 15 of dying bugs B abdomenal series Supine Exercise Name flex Side bilateral Reps/Minutes 15 sec x2 Comments single leg TA Supine Exercise Name SLR Side bilateral Reps/Minutes 10 Comments focus on Tabd contraction bridge Supine Exercise Name PPT with glute squeeze & small lift Side bilateral Reps/Minutes 15 stretches Supine Exercise Name SKTC, piriformis, HS, ITB Side right Reps/Minutes 30 sec ea Manual Therapy Treatment Soft Tissue Mobilization glutes/piriformis Body Location R glut and piriformis Mobilization Type Myofascial Release,Rolling, Strumming,Sustained Pressure Intensity/Depth Moderate Body Position L sidelying ITB Body Location R ITB & lat HS Mobilization Type Myofascial Release,Strumming, Sustained Pressure,Other Intensity/Depth Moderate Body Position L Sidelying Joint Mobilizations coccyx Joint L UPA FM w/clamshell Sacrum Joint UPA R inf PT-OP-R Modalities Start: 07/06/19 08:10 Freq: Status: Active Protocol: Document 08/12/19 14:56 [facility] (Rec: 08/12/19 16:00 [facility] [id number]) Hot Pack/Cold Pack Treatment Hot Pack Location r lumbar & R hip Patient Position Sidelying Treatment Duration (minutes) 15 PT-OP-T Assessment and Plan Start: 07/06/19 08:10 Freq: Status: Active Protocol: Document 08/12/19 14:56 [facility] (Rec: 08/12/19 16:00 [facility] [id number]) Physical Therapy Assessment Goals ROM Short Term Goal (STG) Pt will have equal hip flexibility and ROM between sides in order to dec stress to lumbosacral spine & pelvis. STG Duration 08/18/19 functional ability Short Term Goal (STG) Pt will be able to stand 30 min with no more than 1 point inc in pain on VAS scale. STG Duration 08/05/19 Fpc Goal (LTG) Pt will be able to stand and ambualte as required by her job without inc in pain greater than 2/10. LTG Duration 09/05/19 strength Short Term Goal (STG) Pt will be indep with HEP STG Duration 08/05/19 Fpc Goal (LTG) Pt will be able to score a 3/5 on LPM and 5/5 LE strength testing in order to allow her to do her job and typical daily activities without pain. LTG Duration 09/05/19 Assessment Summary Assessment Pt unable to do progressed core exercises except dying bugs with alt leg on ground d/ t inc in pain and inability to stabilize during higher level exercises. She was given cueing with SLR & hip flex isometric to maintain appropriate positioning. Physical Therapy Plan Frequency and Duration Frequency of Treatment 2x/Week Duration of Treatment 2 months Plan of Care Start Date 07/06/19 Plan of Care End Date 09/05/19 Next Visit Focus/Plan Next Note Type Treatment Note Next Visit Plan PNF for post depression & ant elevation, cont to work on hip abd strength & progress supine core stability; add progressed core exercsies to HEP
--- NOTE | 2019-08-17 18:58 | PT.OTN ---
Current Diagnoses Lumbago with sciatica, right side (08/17/19) Difficulty in walking, not elsewhere classified (08/17/19) Abnormal posture (08/17/19) Weakness (08/17/19) Physical Therapy Treatment Note PT-OP-A Visit Information Start: 07/06/19 08:10 Freq: Status: Active Protocol: Document 08/17/19 15:16 [facility] (Rec: 08/17/19 16:44 [facility] [id number]) Out-Patient Physical Therapy Visit Information Visit Information Visit Type Treatment Note Visit Start Time 15:16 Visit Stop Time 16:15 Total Visit Minutes 59 Visit Number 05/26 Number of STRUCTURAL ENGINEERING PROJECT MANAGER Visits 0 PT-OP-B Current Condition Start: 07/06/19 08:10 Freq: Status: Active Protocol: Document 07/06/19 09:51 [facility] (Rec: 07/06/19 11:46 [facility] [id number]) Current Condition History of Current Condition Onset Date 12 days ago History of Current Condition Pt reports pain started mildly and has just gotten worse over time. She got an xray , which shre report did not show much. She got massage but it didn't help. Pt reports she doesn't know what started the pain. Pt reports she had this pain about 3 years ago, which PT helped. Pt reprost since then and up til 2 weeks ago, she had a clunk in her hip with WB that went away. 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 Pt reports she had to have CG help with walking pain meds. Prior Treatments and Tests Xray IMPRESSION: Grade 1 anterolisthesis of L4 and L5. Mild lumbar spondylosis most pronounced at L5-S1 as above. Facet arthropathy (copied from report by radiologist) Treatment Goals Patient/Caregiver Goals Be able to work, be able to stand at the kitchen sink and be able to walk (3-4 miles per pedometer at work) PT-OP-C Subjective Start: 07/06/19 08:10 Freq: Status: Active Protocol: Document 08/17/19 15:16 [facility] (Rec: 08/17/19 16:44 [facility] [id number]) OP-PT Subjective Patient Comments Patient Comments Pt reports that she has not been taking pain medication for her back today. She was able to get through the day, but says that she can definitely feel her back. She had a busy weekend with a lot of driving and playing with her jose's daughter, and so has not done her exercises since her last session. PT-OP-F Manual Assessment Start: 07/06/19 08:10 Freq: Status: Active Protocol: Document 07/06/19 09:51 [facility] (Rec: 07/06/19 11:46 [facility] [id number]) Manual Assessments Soft Tissue Assessment Soft Tissue Mobility Assessment significant tightness and tenderness to light touch on ITB R, tightness in glutes, piriformis, HS R & QL R PT-OP-G Mobility & Gait Start: 07/06/19 08:10 Freq: Status: Active Protocol: Document 07/06/19 09:51 [facility] (Rec: 07/06/19 11:46 [facility] [id number]) OP Gait Assessment Comments Gait Comments Pt amb with dec RLE push off and dec stance time on RLE . Lat leaning during gait PT-OP-J Posture/Palpation/Skin Start: 07/06/19 08:10 Freq: Status: Active Protocol: Document 07/06/19 09:51 [facility] (Rec: 07/06/19 11:46 [facility] [id number]) Posture Evaluation [facility] Postural Classification System Lumbar Protective Mechanism Left AP 0 Lumbar Protective Mechanism Right AP 0 Lumbar Protective Mechanism Left PA 0 Lumbar Protective Mechanism Right PA 0 PT-OP-L Special Tests Start: 07/06/19 08:10 Freq: Status: Active Protocol: Document 07/06/19 09:51 [facility] (Rec: 07/06/19 11:46 [facility] [id number]) Special Tests Lumbar Spine Special Tests Straight Leg Raise Test Results about 70 deg HS tightness R; 90 deg L PT-OP-M Strength Start: 07/06/19 08:10 Freq: Status: Active Protocol: Document 07/06/19 09:51 [facility] (Rec: 07/06/19 11:46 [facility] [id number]) Hip Strength Hip Manual Muscle Testing Left Flexion (L2) 5 Normal Abduction 5 Normal External Rotation 5 Normal Internal Rotation 5 Normal Right Flexion (L2) 3+ Fair+ Abduction 3 Fair External Rotation 3+ Fair+ Internal Rotation 3+ Fair+ Knee Strength Knee Manual Muscle Testing Left Flexion (S2) 5 Normal Extension (L3) 4+ Good+ Right Flexion (S2) 3+ Fair+ Extension (L3) 3+ Fair+ Ankle/Foot Strength Ankle and Foot Manual Muscle Testing Left Dorsiflexion (L4) 5 Normal Plantarflexion (S1) 5 Normal Right Dorsiflexion (L4) 4 Good Plantarflexion (S1) 5 Normal Comments seated PF test PT-OP-Q Treatments Start: 07/06/19 08:10 Freq: Status: Active Protocol: Document 08/17/19 15:16 [facility] (Rec: 08/17/19 16:44 [facility] [email or web address]) Therapeutic Exercises Supine Exercises hip flex Supine Exercise Name alternating marching, and dying bugs with flexed knees Side bilateral Reps/Minutes 15 LTR Supine Exercise Name focus on segmental control Side bilateral Reps/Minutes 10 abdomenal series Supine Exercise Name flex Side bilateral Reps/Minutes 15 sec x2 per leg Comments single leg. Pt's back was aggravated by double leg TA Supine Exercise Name SLR Side bilateral Reps/Minutes 10 Comments focus on Tabd contraction bridge Supine Exercise Name PPT with glute squeeze & small lift Side bilateral Reps/Minutes 15 stretches Supine Exercise Name SKTC, HS Side right Reps/Minutes 30 sec ea Manual Therapy Treatment Soft Tissue Mobilization ITB Body Location R ITB & lat HS Mobilization Type Myofascial Release,Strumming, Sustained Pressure,Other Intensity/Depth Moderate Body Position L Sidelying Neuro Re-Education Treatment Other Activities PNF Details ant/elevate; post/depress Reps/Duration 12 Comments 1. rhythmic initiation 2. resisted concentric/ isometric 3. reciprocal concentrics PT-OP-R Modalities Start: 07/06/19 08:10 Freq: Status: Active Protocol: Document 08/17/19 15:16 [facility] (Rec: 08/17/19 16:44 [facility] [id number]) Hot Pack/Cold Pack Treatment Hot Pack Location r lumbar & R hip Patient Position Sidelying Treatment Duration (minutes) 15 Patient Tolerance Good PT-OP-T Assessment and Plan Start: 07/06/19 08:10 Freq: Status: Active Protocol: Document 08/17/19 15:16 [facility] (Rec: 08/17/19 16:44 [facility] [id number]) Physical Therapy Assessment Goals ROM Short Term Goal (STG) Pt will have equal hip flexibility and ROM between sides in order to dec stress to lumbosacral spine & pelvis. STG Duration 08/18/19 functional ability Short Term Goal (STG) Pt will be able to stand 30 min with no more than 1 point inc in pain on VAS scale. STG Duration 08/05/19 Interventional Nurse Goal (LTG) Pt will be able to stand and ambualte as required by her job without inc in pain greater than 2/10. LTG Duration 09/05/19 strength Short Term Goal (STG) Pt will be indep with HEP STG Duration 08/05/19 Interventional Nurse Goal (LTG) Pt will be able to score a 3/5 on LPM and 5/5 LE strength testing in order to allow her to do her job and typical daily activities without pain. LTG Duration 09/05/19 Assessment Summary Assessment Reviewed core exercises for pt 's HEP with focus on bretahing and tighening core when perofrming exercises. Pt responded well to most exercises, she was unable to perform DKTC flexion isometrics without aggravation of back pain. Pt performed pelvic PNF patterns. She was able to achieve desired motions, but required a lot of cueing. She would benefit from continued work on this to improve her push off during gait. Physical Therapy Plan Frequency and Duration Frequency of Treatment 2x/Week Duration of Treatment 2 months Plan of Care Start Date 07/06/19 Plan of Care End Date 09/05/19 Next Visit Focus/Plan Next Note Type Treatment Note Next Visit Plan PNF for posterior depression and anterior elevation incorporating whole leg movements, continue to progress core strengthening, and hip strenthening
--- NOTE | 2019-08-24 18:32 | PT.OTN ---
Current Diagnoses Lumbago with sciatica, right side (08/24/19) Difficulty in walking, not elsewhere classified (08/24/19) Abnormal posture (08/24/19) Weakness (08/24/19) Physical Therapy Treatment Note PT-OP-A Visit Information Start: 07/06/19 08:10 Freq: Status: Active Protocol: Document 08/24/19 15:15 MT (Rec: 08/24/19 16:24 MT [email or web address]) Out-Patient Physical Therapy Visit Information Visit Information Visit Type Treatment Note Visit Start Time 15:15 Visit Stop Time 16:12 Total Visit Minutes 57 Visit Number 06/26 Number of INDUCTOR TESTER Visits 0 PT-OP-B Current Condition Start: 07/06/19 08:10 Freq: Status: Active Protocol: Document 07/06/19 09:51 [facility] (Rec: 07/06/19 11:46 [facility] [id number]) Current Condition History of Current Condition Onset Date 12 days ago History of Current Condition Pt reports pain started mildly and has just gotten worse over time. She got an xray , which shre report did not show much. She got massage but it didn't help. Pt reports she doesn't know what started the pain. Pt reports she had this pain about 3 years ago, which PT helped. Pt reprost since then and up til 2 weeks ago, she had a clunk in her hip with WB that went away. 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 Pt reprots she was unable to do all of the med passing d/t pain. Pt reports she had to have help with walking pain meds. Prior Treatments and Tests Xray IMPRESSION: Grade 1 anterolisthesis of L4 and L5. Mild lumbar spondylosis most pronounced at L5-S1 as above. Facet arthropathy (copied from report by radiologist) Treatment Goals Patient/Caregiver Goals Be able to work, be able to stand at the kitchen sink and be able to walk (3-4 miles per pedometer at work) PT-OP-C Subjective Start: 07/06/19 08:10 Freq: Status: Active Protocol: Document 08/24/19 15:15 MT (Rec: 08/24/19 16:24 MT [email or web address]) OP-PT Subjective Patient Comments Patient Comments pt reported that she was able to tolerate a lot of standing in the kitchen for cooking. SHe was a little sore later in the day, but felt fine the next day. She is trying to wean off of her pain medication, but she continues to have pain in the morning that is not able to be relieved by stretching alone. She reports that she has been compliant with her stretches, but has not done much of the strengthening core exercises from her HEP. PT-OP-F Manual Assessment Start: 07/06/19 08:10 Freq: Status: Active Protocol: Document 07/06/19 09:51 [facility] (Rec: 07/06/19 11:46 [facility] [id number]) Manual Assessments Soft Tissue Assessment Soft Tissue Mobility Assessment significant tightness and tenderness to light touch on ITB R, tightness in glutes, piriformis, HS R & QL R PT-OP-G Mobility & Gait Start: 07/06/19 08:10 Freq: Status: Active Protocol: Document 07/06/19 09:51 [facility] (Rec: 07/06/19 11:46 [facility] [id number]) OP Gait Assessment Comments Gait Comments Pt amb with dec RLE push off and dec stance time on RLE . Lat leaning during gait PT-OP-J Posture/Palpation/Skin Start: 07/06/19 08:10 Freq: Status: Active Protocol: Document 07/06/19 09:51 [facility] (Rec: 07/06/19 11:46 [facility] [id number]) Posture Evaluation Felipe Postural Classification System Lumbar Protective Mechanism Left AP 0 Lumbar Protective Mechanism Right AP 0 Lumbar Protective Mechanism Left PA 0 Lumbar Protective Mechanism Right PA 0 PT-OP-L Special Tests Start: 07/06/19 08:10 Freq: Status: Active Protocol: Document 07/06/19 09:51 [facility] (Rec: 07/06/19 11:46 [facility] [id number]) Special Tests Lumbar Spine Special Tests Straight Leg Raise Test Results about 70 deg HS tightness R; 90 deg L PT-OP-M Strength Start: 07/06/19 08:10 Freq: Status: Active Protocol: Document 07/06/19 09:51 [facility] (Rec: 07/06/19 11:46 [facility] [id number]) Hip Strength Hip Manual Muscle Testing Left Flexion (L2) 5 Normal Abduction 5 Normal External Rotation 5 Normal Internal Rotation 5 Normal Right Flexion (L2) 3+ Fair+ Abduction 3 Fair External Rotation 3+ Fair+ Internal Rotation 3+ Fair+ Knee Strength Knee Manual Muscle Testing Left Flexion (S2) 5 Normal Extension (L3) 4+ Good+ Right Flexion (S2) 3+ Fair+ Extension (L3) 3+ Fair+ Ankle/Foot Strength Ankle and Foot Manual Muscle Testing Left Dorsiflexion (L4) 5 Normal Plantarflexion (S1) 5 Normal Right Dorsiflexion (L4) 4 Good Plantarflexion (S1) 5 Normal Comments seated PF test PT-OP-Q Treatments Start: 07/06/19 08:10 Freq: Status: Active Protocol: Document 08/24/19 15:15 MT (Rec: 08/24/19 16:24 MT [email or web address]) Therapeutic Exercises Supine Exercises hip flex Supine Exercise Name alternating marching, and dying bugs with flexed knees Side bilateral Reps/Minutes 15 LTR Supine Exercise Name focus on segmental control Side bilateral Reps/Minutes 10 abdomenal series Supine Exercise Name flex Side bilateral Reps/Minutes 15 sec x2 per leg Comments single leg. Pt's back was aggravated by double leg TA Supine Exercise Name SLR Side bilateral Reps/Minutes 10 Comments focus on Tabd contraction bridge Supine Exercise Name PPT with glute squeeze & small lift Side bilateral Reps/Minutes 15 Sidelying Exercises abd Sidelying Exercise Name straight leg aB Side bilateral Reps/Minutes 15 ER Sidelying Exercise Name clamshells Side bilateral Reps/Minutes 15 Manual Therapy Treatment Soft Tissue Mobilization ITB Body Location R ITB/ lat HS/ tibialis anterior Mobilization Type Myofascial Release,Strumming, Sustained Pressure,Other Intensity/Depth Moderate Body Position L Sidelying Comments Pt able to tolerate much more pressure Neuro Re-Education Treatment Other Activities PNF Details ant/elevate; post/depress Comments 1. rhythmic initiation 2. resisted concentric/ isometric 3. reciprocal concentrics in corporating LE movements PT-OP-R Modalities Start: 07/06/19 08:10 Freq: Status: Active Protocol: Document 08/24/19 15:15 MT (Rec: 08/24/19 16:24 MT [email or web address]) Hot Pack/Cold Pack Treatment Hot Pack Location r lumbar & R hip Patient Position Sidelying Treatment Duration (minutes) 15 Patient Tolerance Good PT-OP-T Assessment and Plan Start: 07/06/19 08:10 Freq: Status: Active Protocol: Document 08/24/19 15:15 MT (Rec: 08/24/19 16:24 MT [email or web address]) Physical Therapy Assessment Goals ROM Short Term Goal (STG) Pt will have equal hip flexibility and ROM between sides in order to dec stress to lumbosacral spine & pelvis. STG Duration 08/18/19 functional ability Short Term Goal (STG) Pt will be able to stand 30 min with no more than 1 point inc in pain on VAS scale. STG Duration 08/05/19 Solar Engineer Goal (LTG) Pt will be able to stand and ambualte as required by her job without inc in pain greater than 2/10. LTG Duration 09/05/19 strength Short Term Goal (STG) Pt will be indep with HEP STG Duration 08/05/19 Senior Living Goal (LTG) Pt will be able to score a 3/5 on LPM and 5/5 LE strength testing in order to allow her to do her job and typical daily activities without pain. LTG Duration 09/05/19 Assessment Summary Assessment Reviewed core strengthening exercises and reprinted strengthening HEP for pt, since she was only being compliant with the stretch portion. Discussed importance of the strenghening exercises for mcc benefits. Pt required cueing for the core exercises to tighten her TA and to move slow and controlled. Pt was able to tolerate more pressure with STM to her ITB area. Pt was able to perform PNF incorporating whole leg movements, but required frequent cueing for coordination of movement. Physical Therapy Plan Frequency and Duration Frequency of Treatment 2x/Week Duration of Treatment 2 months Plan of Care Start Date 07/06/19 Plan of Care End Date 09/05/19 Next Visit Focus/Plan Next Note Type Treatment Note Next Visit Plan revisit PNF for posterior depression and anterior elevation incorporating whole leg movements, continue to progress core strengthening and add to HEP, and hip strenthening, progress to standing exercises
--- NOTE | 2019-08-31 18:37 | PT.OTN ---
Current Diagnoses Lumbago with sciatica, right side (08/31/19) Difficulty in walking, not elsewhere classified (08/31/19) Abnormal posture (08/31/19) Weakness (08/31/19) Physical Therapy Treatment Note PT-OP-A Visit Information Start: 07/06/19 08:10 Freq: Status: Active Protocol: Document 08/31/19 15:13 MT (Rec: 08/31/19 16:15 MT [id number]) Out-Patient Physical Therapy Visit Information Visit Information Visit Type Treatment Note Visit Start Time 15:13 Visit Stop Time 16:09 Total Visit Minutes 56 Visit Number 07/26 Number of STEAM OVEN OPERATOR Visits 0 PT-OP-B Current Condition Start: 07/06/19 08:10 Freq: Status: Active Protocol: Document 07/06/19 09:51 [facility] (Rec: 07/06/19 11:46 [facility] [id number]) Current Condition History of Current Condition Onset Date 12 days ago History of Current Condition Pt reports pain started mildly and has just gotten worse over time. She got an xray , which shre report did not show much. She got massage but it didn't help. Pt reports she doesn't know what started the pain. Pt reports she had this pain about 3 years ago, which PT helped. Pt reprost since then and up til 2 weeks ago, she had a clunk in her hip with WB that went away. 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 Pt reports she had to have CG help with walking pain meds. Prior Treatments and Tests Xray IMPRESSION: Grade 1 anterolisthesis of L4 and L5. Mild lumbar spondylosis most pronounced at L5-S1 as above. Facet arthropathy (copied from report by radiologist) Treatment Goals Patient/Caregiver Goals Be able to work, be able to stand at the kitchen sink and be able to walk (3-4 miles per pedometer at work) PT-OP-C Subjective Start: 07/06/19 08:10 Freq: Status: Active Protocol: Document 08/31/19 15:13 MT (Rec: 08/31/19 16:15 MT [id number]) OP-PT Subjective Patient Comments Patient Comments pt reported that she has been having less pain at wokr and has been able to do activities in the kitchen and with shopping with more standing tolerance. She has been still having to take pain medication some mornings, especially when she wakes up in odd positions in the morning. PT-OP-F Manual Assessment Start: 07/06/19 08:10 Freq: Status: Active Protocol: Document 07/06/19 09:51 [facility] (Rec: 07/06/19 11:46 [facility] [id number]) Manual Assessments Soft Tissue Assessment Soft Tissue Mobility Assessment significant tightness and tenderness to light touch on ITB R, tightness in glutes, piriformis, HS R & QL R PT-OP-G Mobility & Gait Start: 07/06/19 08:10 Freq: Status: Active Protocol: Document 07/06/19 09:51 [facility] (Rec: 07/06/19 11:46 [facility] [id number]) OP Gait Assessment Comments Gait Comments Pt amb with dec RLE push off and dec stance time on RLE . Lat leaning during gait PT-OP-J Posture/Palpation/Skin Start: 07/06/19 08:10 Freq: Status: Active Protocol: Document 07/06/19 09:51 [facility] (Rec: 07/06/19 11:46 [facility] [id number]) Posture Evaluation Felipe Postural Classification System Lumbar Protective Mechanism Left AP 0 Lumbar Protective Mechanism Right AP 0 Lumbar Protective Mechanism Left PA 0 Lumbar Protective Mechanism Right PA 0 PT-OP-L Special Tests Start: 07/06/19 08:10 Freq: Status: Active Protocol: Document 07/06/19 09:51 [facility] (Rec: 07/06/19 11:46 [facility] [id number]) Special Tests Lumbar Spine Special Tests Straight Leg Raise Test Results about 70 deg HS tightness R; 90 deg L PT-OP-M Strength Start: 07/06/19 08:10 Freq: Status: Active Protocol: Document 07/06/19 09:51 [facility] (Rec: 07/06/19 11:46 [facility] [id number]) Hip Strength Hip Manual Muscle Testing Left Flexion (L2) 5 Normal Abduction 5 Normal External Rotation 5 Normal Internal Rotation 5 Normal Right Flexion (L2) 3+ Fair+ Abduction 3 Fair External Rotation 3+ Fair+ Internal Rotation 3+ Fair+ Knee Strength Knee Manual Muscle Testing Left Flexion (S2) 5 Normal Extension (L3) 4+ Good+ Right Flexion (S2) 3+ Fair+ Extension (L3) 3+ Fair+ Ankle/Foot Strength Ankle and Foot Manual Muscle Testing Left Dorsiflexion (L4) 5 Normal Plantarflexion (S1) 5 Normal Right Dorsiflexion (L4) 4 Good Plantarflexion (S1) 5 Normal Comments seated PF test PT-OP-Q Treatments Start: 07/06/19 08:10 Freq: Status: Active Protocol: Document 08/31/19 15:13 MT (Rec: 08/31/19 16:15 MT [id number]) Therapeutic Exercises Supine Exercises hip flex Supine Exercise Name alternating marching, and dying bugs with flexed knees Side bilateral Reps/Minutes 15 abdomenal series Supine Exercise Name flex Side bilateral Reps/Minutes 15 sec x2 per leg Comments single leg. Pt's back was aggravated by double leg TA Supine Exercise Name SLR Side bilateral Reps/Minutes 10 Comments focus on Tabd contraction bridge Supine Exercise Name PPT with glute squeeze & small lift Side bilateral Reps/Minutes [address] hip Standing Exercise Name hip abd/ext Side bilateral Resistance L1 Reps/Minutes 15 each side side stepping Side bilateral Resistance L1 Reps/Minutes [address] Manual Therapy Treatment Soft Tissue Mobilization ITB Body Location R ITB/ lat HS/ tibialis anterior Mobilization Type Myofascial Release,Strumming, Sustained Pressure,Other Intensity/Depth Moderate Body Position L Sidelying Comments Pt able to tolerate much more pressure Joint Mobilizations Lumbar spine Joint R lumbar spine Direction gapping Grade III Body Position Sidelying Comments combined with posterior depression /anterior elevation contract/relax to increase gapping Neuro Re-Education Treatment Other Activities PNF Details ant/elevate; post/depress Comments 1. rhythmic initiation 2. resisted concentric/ isometric 3. combination of resisted concentrics PT-OP-R Modalities Start: 07/06/19 08:10 Freq: Status: Active Protocol: Document 08/31/19 15:13 MT (Rec: 08/31/19 16:15 MT [id number]) Hot Pack/Cold Pack Treatment Hot Pack Location r lumbar & R hip Patient Position Sidelying Treatment Duration (minutes) 10 Patient Tolerance Good PT-OP-T Assessment and Plan Start: 07/06/19 08:10 Freq: Status: Active Protocol: Document 08/31/19 15:13 MT (Rec: 08/31/19 16:15 MT [id number]) Physical Therapy Assessment Goals ROM Short Term Goal (STG) Pt will have equal hip flexibility and ROM between sides in order to dec stress to lumbosacral spine & pelvis. STG Duration 08/18/19 functional ability Short Term Goal (STG) Pt will be able to stand 30 min with no more than 1 point inc in pain on VAS scale. STG Duration 08/05/19 [facility] Goal (LTG) Pt will be able to stand and ambualte as required by her job without inc in pain greater than 2/10. LTG Duration 09/05/19 strength Short Term Goal (STG) Pt will be indep with HEP STG Duration 08/05/19 Certified Lactation Counselor Goal (LTG) Pt will be able to score a 3/5 on LPM and 5/5 LE strength testing in order to allow her to do her job and typical daily activities without pain. LTG Duration 09/05/19 Assessment Summary Assessment Reviewed the core exercises that the pt has been given as her HEP. Pt reported that the bridging exercises have been aggravating her back, so she was advised to take those out of her program. Pt has increased her tolerance to standing activities without aggravation of back/leg pain. She was able to perform PNF motions with less cueing and in combination with sustained pressure, was able to increase R spinal gapping with posterior depression motion. Pt was able to tolerate much more pressure with STM to her ITB. Physical Therapy Plan Frequency and Duration Frequency of Treatment 2x/Week Duration of Treatment 2 months Plan of Care Start Date 07/06/19 Plan of Care End Date 09/05/19 Next Visit Focus/Plan Next Note Type Progress Note Next Visit Plan revisit PNF for posterior depression and anterior elevation incorporating whole leg movements, continue to progress core strengthening and add to HEP, and hip strenthening, progress to standing exercises
--- NOTE | 2019-10-05 08:51 | PT-OP ANOTE ---
Pt called d/t no show and left message re: next appt and asked to call if she is unable to attend.
--- NOTE | 2019-10-22 11:07 | PT.OPDS ---
Current Diagnoses Lumbago with sciatica, right side (08/31/19) Difficulty in walking, not elsewhere classified (08/31/19) Abnormal posture (08/31/19) Weakness (08/31/19) Visit Care Team Role Provider Type Gia Michael DO Primary Care Provider Physician Specialty: Family Practice Address: [address] [place] [address], [address], [address] Email: [email or web address] Madalyn Caldwell MD Attending Provider Physician Specialty: Internal Medicine Address: [address] [place] [address], [id number] Email: Visit Number Visit Number 07/26 Discharge Summary Protocol: Document 10/22/19 11:06 [facility] (Rec: 10/22/19 11:07 [facility] [id number]) Physical Therapy Assessment Assessment Summary Assessment Pt cancelled all further appointments requesting dc. She was improving prior to this with progressive ability to stand at work and do typical activities without inc pain. D/C at this time d/t pt request Physical Therapy Plan Discharge Physical Therapy Discharge Reasons Patient Request
== END 2019-11-19 13:14 ==
LOC: PHYS 15:15
PROVIDERS: PCP Family Medicine; Visit Provider Hospitalist
DX: M54.41 Lumbago with sciatica, right side (principal); R53.1 Weakness; R29.3 Abnormal posture; R26.2 Difficulty in walking, not elsewhere classified
CPT/HCPCS: 97010; 97014; 97110; 97112; 97140; 97162; 97530; 97535; G0283

== ENCOUNTER 2020-03-14 19:52 | Emergency (ER) | payer OTHER, SELFPAY ==
[2020-03-14 20:08] VITALS: BP 180/81; PULSE 80; RESP 17; TEMP 36.8; O2SAT 96; BMI 38.9
--- NOTE | 2020-03-14 20:13 | DI.RAD.S_ITS ---
PROCEDURE: XR KNEE RT 3V INDICATIONS: Slipped and fell, legs spread laterally. Pop to left knee, TECHNIQUE: 3 views of the knee were acquired. COMPARISON: [facility], , KNEE 3V LEFT, 09/27/2017, 14:41. FINDINGS: Bones: No fractures or dislocations. No suspicious bony lesions. Mild joint degeneration. Lateral tilt of the patella Soft tissues: No joint effusion. No suspicious soft tissue calcifications. IMPRESSION: Mild joint degeneration No fracture If the patient's pain or other symptoms persist, consider further evaluation with MRI Dictated by: Maxwell Gonzalez M.D. on 03/14/2020 at 21:06 Approved by: Maxwell Gonzalez M.D. on 03/14/2020 at 21:09
--- NOTE | 2020-03-14 20:13 | DI.RAD.S_ITS ---
PROCEDURE: XR KNEE LT 3V INDICATIONS: Slipped and fell, legs spread laterally. Pop to left knee, TECHNIQUE: 3 views of the knee were acquired. COMPARISON: [facility], , KNEE 3V LEFT, 09/27/2017, 14:41. FINDINGS: Bones: No fractures or dislocations. No suspicious bony lesions. Scattered degenerative subchondral sclerosis and spurring. Soft tissues: No joint effusion. No suspicious soft tissue calcifications. IMPRESSION: No fracture. Mild to moderately joint degeneration. If the patient's pain or other symptoms persist, consider further evaluation with MRI Dictated by: Maxwell Gonzalez M.D. on 03/14/2020 at 21:01 Approved by: Maxwell Gonzalez M.D. on 03/14/2020 at 21:06
--- NOTE | 2020-03-14 20:37 | DI.RAD.S_ITS ---
PROCEDURE: XR TIBIA FIBULA RT 2V INDICATIONS: s/p slipped on wet floor, pain in bilateral knee and l lower TECHNIQUE: 2 views of the tibia and fibula were acquired. COMPARISON: None. FINDINGS: Bones: No fractures or dislocations. No suspicious bony lesions. Soft tissues: No suspicious soft tissue calcifications or masses. IMPRESSION: No fracture Dictated by: Maxwell Gonzalez M.D. on 03/14/2020 at 21:09 Approved by: Maxwell Gonzalez M.D. on 03/14/2020 at 21:10
--- NOTE | 2020-03-14 20:39 | PC.NURSE ---
Reports falling on wet floor landing on both knees. Pain noted to right knee immediately increase pain on left knee. Increase pain over time to left knee and left sepulveda. CMS intact. No obvious bruising noted.
--- NOTE | 2020-03-14 20:58 | ED.LOWEXIN ---
HPI - Extremity Injury (Lower) <CARISA Calle - Last Filed: 03/14/20 21:41> General Chief Complaint: Extremity Injury, Lower Stated Complaint: slip/fell twisted both knees Time Seen by Provider: 03/14/20 20:27 Source: patient Mode of arrival: Wheelchair Limitations: no limitations History of Present Illness HPI Narrative: This is a 60-year-old female, nonsmoker, who presents to ED with significant other with chief complain of bilateral medial knee pain and left lower leg pain since 1839 this afternoon . Patient was mopping due to wet floor bilateral knees faced inwards while her feet were stationed outwards. Patient states left knee is hurting worse with ambulation and bearing weight. Patient is able to bend right knee without much difficulty. Patient reports history of left knee arthritis. Since the injury, patient is having mild low back pain and has history of but sciatica. Patient denies injuring other areas or hitting her head from this incident. She to 800 mg of Advil immediately after the injury. Patient reports pain worse with movement or bearing weight and reports intact sensation. Related Data Previous Rx's Medication Instructions Recorded citalopram 40 mg tablet 20 mg PO Q DAY #30 tab 05/04/19 metformin 1,000 mg PO BIDCC #180 tab 05/04/19 simvastatin 20 mg tablet 20 mg PO QHS #90 tab 05/15/19 Disabled Parking Permit #1 ea 07/06/19 gabapentin 300 mg capsule 300 mg PO TID #90 cap 07/21/19 cyclobenzaprine 10 mg tablet 10 mg PO TID PRN #45 tab 08/06/19 lisinopril 5 mg tablet 5 mg PO DAILY #90 tab 08/06/19 empagliflozin 10 mg tablet 10 mg PO DAILY #90 tab 09/07/19 glimepiride 4 mg tablet 8 mg PO Q DAY #180 tab 09/07/19 Allergies Allergy/AdvReac Type Severity Reaction Status Date / Time No Known Drug Allergies Allergy Verified 09/07/19 09:35 Review of Systems <CARISA Calle - Last Filed: 03/14/20 21:41> Review of Systems Narrative: General: Denies fever, chills, fatigue, malaise, sweats. HEENT: Denies sinus pain, ear pain, sore throat, difficulty swallowing, dizziness. Respiratory: Denies dyspnea, cough, wheezing, hemoptysis, sputum. Cardiovascular: Denies chest pain, palpitations, orthopnea, edema. Gastrointestinal: Denies nausea, vomiting, abdominal pain, diarrhea, constipation, melena. : Denies dysuria, frequency, incontinence, hematuria, urinary retention. Musculoskeletal: See HPI Skin: Denies rash, skin lesions, or other. Neurologic: Denies weakness, headache, numbness, change in speech, confusion, seizures, incoordination. Psychiatric: No concerning psychosocial issues. 12-point review of systems is negative except for those stated above. Patient History <CARISA Calle - Last Filed: 03/14/20 21:41> Medical History Ankle fracture (Resolved 1977) Chicken pox (Resolved 1967) Depression (Chronic 1997) Diabetes mellitus (Chronic 2009) Group B streptococcal infection (Resolved 04/2014) History of heavy periods (Resolved) History of heavy periods (Resolved 1979) Hyperlipidemia (Chronic) Hypertriglyceridemia (Chronic) Irregular periods/menstrual cycles (Resolved 1989) Kidney stones (Resolved 1999) Normal Papanicolaou smear (Resolved) Obesity (Chronic) Shoulder pain (Chronic 2014) Uterine cancer (Resolved 2005) Surgical History Anesthesia (Resolved) History of surgery (Resolved 04/2014) History of third molar tooth extraction (Resolved 1973) Status post hysterectomy (Resolved 09/2006) Family History Father Cancer Lung cancer Grandfather Smoker Heart disease Occupational exposure to environmental pollution Grandmother Cancer Mother Cancer Ovarian cancer Breast cancer Sister Age: 63 Heart disease History of heart bypass surgery Diabetes mellitus Social History Smoking Status: Never smoker Smoking Status: Never smoker alcohol intake frequency: 0-2 drinks per day Substance Use Type: does not use Exam <CARISA Calle - Last Filed: 03/14/20 21:41> Narrative Exam Narrative: General appearance: well developed, well nourished, in no acute distress. Head: normocephalic, atraumatic, no scalp lesions, non-tender. ENT: Hearing grossly intact. Nose without bleeding, purulent discharge. Airway patent. Neck/Thyroid: neck supple, full range of motion, no visible masses or meningeal signs. No JVD, non-tender without lymphadenopathy. Skin: no suspicious rashes, lesions over visible areas. Warm and dry and appropriate color for ethnicity. Heart: no clubbing, no cyanosis, no edema. Lungs: Breathing even and unlabored. No stridor. No accessory muscles used. Able to speak in full sentences. Chest: normal shape and expansion. Abdomen: non-obese, non-distended. Neurologic: alert and oriented. Cognitive exam, NEWS PRODUCTION ASSISTANT and PNS grossly intact on informal exam. Psych: good eye contact, normal affect. Initial Vital Signs Initial Vital Signs: Vital Signs Temperature 98.2 F 03/14/20 20:08 Pulse Rate 80 03/14/20 20:08 Respiratory Rate 17 03/14/20 20:08 Blood Pressure 180/81 H 03/14/20 20:08 Pulse Oximetry 96 03/14/20 20:08 Extrem Right lower extremity: hip/thigh Details: no tenderness, knee Details: normal to inspection, tenderness Location: of the medial joint line, normal ROM and knee ligament exam abnormal Details: varus stress test normal; no swelling, no abrasions, no lacerations, no ecchymosis, no crepitus, no deformity and no unusual warmth, lower leg Details: normal to inspection; no tenderness, ankle Details: normal to inspection; no tenderness and foot Details: normal capillary refill, normal to inspection, toes with normal ROM, no edema and vascular exam Details: dorsalis pedis pulse present; no tenderness Left lower extremity: hip/thigh Details: no tenderness, knee Details: normal to inspection, tenderness Location: of the medial joint line, abnormal ROM Details: pain with active ROM and pain with passive ROM and knee ligament exam abnormal Details: varus stress test; no swelling, no lacerations, no ecchymosis and no crepitus, lower leg Details: normal to inspection, tenderness Location: of the proximal tibia and of the proximal fibula and no edema; no localized swelling, ankle Details: normal to inspection; no tenderness and foot Details: normal capillary refill and normal to inspection; no tenderness <Martínez Dela Cruz DO - Last Filed: 03/15/20 04:58> Initial Vital Signs Initial Vital Signs: Vital Signs Temperature 98.2 F 03/14/20 20:08 Pulse Rate 80 03/14/20 20:08 Respiratory Rate 17 03/14/20 20:08 Blood Pressure 180/81 H 03/14/20 20:08 Pulse Oximetry 96 03/14/20 20:08 Procedures <CONNOR CalleP - Last Filed: 03/14/20 21:41> Orthopedic Splinting/Casting Left Knee: Side: left Lower Extremity Injury Location: knee Lower Extremity Immobilizer: knee immobilizer Post splinting neuro exam: intact Post splinting vascular exam: intact Placed by: Nursing Right Knee: Side: right Lower Extremity Injury Location: knee Lower Extremity Immobilizer: Maciej wrap Post splinting neuro exam: intact Post splinting vascular exam: intact Placed by: Nursing Scores <CONNOR CalleP - Last Filed: 03/14/20 21:41> GCS Fransisca coma scale eye opening: Spontaneous [place] coma scale verbal response: Orientated [place] coma scale motor response: Obey commands Fransisca coma scale total score: 15 Course <CONNOR CalleP - Last Filed: 03/14/20 21:41> Orders Ordered: ED Orders 03/14/20 20:13 XR knee LT 3V Stat XR knee RT 3V Stat 03/14/20 20:37 XR tibia fibula LT 2V Stat Vital Signs Vital signs: Vital Signs - 8 hr 03/14/20 21:47 Pulse Rate 82 Respiratory Rate 16 Blood Pressure 172/80 H Pulse Oximetry 100 <Martínez Dela Cruz DO - Last Filed: 03/15/20 04:58> Orders Ordered: ED Orders 03/14/20 20:13 XR knee LT 3V Stat XR knee RT 3V Stat 03/14/20 20:37 XR tibia fibula LT 2V Stat Vital Signs Vital signs: Vital Signs - 8 hr 03/14/20 21:47 Pulse Rate 82 Respiratory Rate 16 Blood Pressure 172/80 H Pulse Oximetry 100 MDM - Extremity Injury (Lower) <CONNOR CalleP - Last Filed: 03/14/20 21:41> Differential Diagnosis Differential diagnosis: Likely other (Knee sprain/strain, dislocation, fracture) Medical Records Attestation: I reviewed the patient's medical records. Imaging Data Knee-right: Radiologist's Impression: [address] [address] XRay Report Signed Patient: Shelbie Snyder R#: [id number] : 1At:[id number] Age/Sex: 60 / FDate of Service: 03/14/20 Loc: ED Accession Number: [id number] Procedure: XR knee RT 3V Ordering Provider: Martínez Dela Cruz D.O. PROCEDURE: XR KNEE RT 3V INDICATIONS: Slipped and fell, legs spread laterally. Pop to left knee, TECHNIQUE: 3 views of the knee were acquired. COMPARISON: Merged with [facility], KNEE 3V LEFT, 09/27/2017, 14:41. FINDINGS: Bones: No fractures or dislocations. No suspicious bony lesions. Mild joint degeneration. Lateral tilt of the patella Soft tissues: No joint effusion. No suspicious soft tissue calcifications. IMPRESSION: Mild joint degeneration No fracture If the patient's pain or other symptoms persist, consider further evaluation with MRI Dictated by: Maxwell Gonzalez M.D. on 03/14/2020 at 21:06 Approved by: Maxwell Gonzalez M.D. on 03/14/2020 at 21:09 Knee-Left: Radiologist's Impression: [address] [address] XRay Report Signed Patient: Shelbie Snyder R#: [id number] : 1At:[id number] Age/Sex: 60 / FDate of Service: 03/14/20 Loc: ED Accession Number: [id number] Procedure: XR knee RT 3V Ordering Provider: Martínez Dela Cruz D.O. PROCEDURE: XR KNEE RT 3V INDICATIONS: Slipped and fell, legs spread laterally. Pop to left knee, TECHNIQUE: 3 views of the knee were acquired. COMPARISON: Merged with [facility], KNEE 3V LEFT, 09/27/2017, 14:41. FINDINGS: Bones: No fractures or dislocations. No suspicious bony lesions. Mild joint degeneration. Lateral tilt of the patella Soft tissues: No joint effusion. No suspicious soft tissue calcifications. IMPRESSION: Mild joint degeneration No fracture If the patient's pain or other symptoms persist, consider further evaluation with MRI Dictated by: Maxwell Gonzalez M.D. on 03/14/2020 at 21:06 Approved by: Maxwell Gonzalez M.D. on 03/14/2020 at 21:09 XR-Tib/fib Left: Radiologist's Impression: [address] [address] XRay Report Signed Patient: Shelbie Snyder JMR#: [id number] : 1Acct:[id number] Age/Sex: 60 / FDate of Service: 03/14/20 Loc: ED Accession Number: [id number] Procedure: XR tibia fibula LT 2V Ordering Provider: Yves Barrientos PROCEDURE: XR TIBIA FIBULA RT 2V INDICATIONS: s/p slipped on wet floor, pain in bilateral knee and l lower TECHNIQUE: 2 views of the tibia and fibula were acquired. COMPARISON: None. FINDINGS: Bones: No fractures or dislocations. No suspicious bony lesions. Soft tissues: No suspicious soft tissue calcifications or masses. IMPRESSION: No fracture Dictated by: Maxwell Gonzalez M.D. on 03/14/2020 at 21:09 Approved by: Maxwell Gonzalez M.D. on 03/14/2020 at 21:10 [facility] Narrative Medical decision making narrative: X-ray test is negative for fractures or dislocation on bilateral knee and proximal tib-fib on left lower extremity. Patient declined Tylenol and was offered. She had taken ibuprofen before coming into ED. patient provided with cool pack on bilateral knee for comfort while in ED. she declined a cane, walker, or crutches and will decide later and purchase either of ambulation virtual customer assistant at local drug store as needed. Patient elected to use Maciej wrap on right knee and to use knee immobilizer on left knee. Work off note provided for next 3 days. Patient advised to follow-up primary care physician with worsening or persisting pain for further imaging test or MRI imaging test or a referral to physical therapist or orthopedist. Return precautions were discussed with patient and patient verbalized understanding and in agreement with treatment plan. Discharge Plan Departure Patient Disposition: Home Clinical Impression: Knee pain, bilateral Qualifiers: Chronicity: acute Qualified Code(s): M25.561 - Pain in right knee Contusion of left knee and lower leg Qualifiers: Encounter type: initial encounter Qualified Code(s): S80.02XA - Contusion of left knee, initial encounter Discharge Date/Time: 03/14/20 21:48 Instructions: DI for Knee Sprain, DI for Contusion Activity Restrictions/Additional Instructions: You have been diagnosed with [bilateral knee pain/injury and left lower leg contusion from slipping on wet floor ]. What to do: *Take your medications as directed. Please use RICE therapy with rest, cool pack for next 48hrs, elevation and compression with maciej wrap and knee immobilizer. You can use [id number] ibuprofen/Motrin 400 mg to 800 mg up to 3 times a day with food for discomfort and inflammation as needed. You can also take [id number] Tylenol 650 mg to 1000 mg to 3 to 4 times a day as needed. You declined crutches/cane/walker this time. *Follow up with your primary care provider in 2-3 days, call for an appointment. Let them know you were seen in the ED and that we asked you to be seen in follow up. If pain persists 10- 14 days, you may require repeating imaging test or MRI. *Return to ED if you have any new, worsening, or concerning symptoms, such as [chest pain, breathing difficulty, unable to tolerate fluids, pain, weakness/numbness/tingling on lower extremities, fever or any acute concerns]. Prescriptions: No Action metformin 1,000 mg tablet 1,000 mg PO BIDCC Qty: 180 RF: 2 citalopram 40 mg tablet 20 mg PO Q DAY Qty: 30 RF: 1 simvastatin 20 mg tablet 20 mg PO QHS Qty: 90 RF: 1 (DME) Disabled Parking Permit Qty: 1 RF: 0 gabapentin 300 mg capsule 300 mg PO TID Qty: 90 RF: 0 lisinopril 5 mg tablet 5 mg PO DAILY Qty: 90 RF: 1 cyclobenzaprine 10 mg tablet 10 mg PO TID PRN (Reason: muscle spasm) Qty: 45 RF: 0 glimepiride [Amaryl] 4 mg tablet 8 mg PO Q DAY Qty: 180 RF: 1 Jardiance 10 mg tablet 10 mg PO DAILY Qty: 90 RF: 1 Referrals: Gia Michael DO [Primary Care Provider] - Stand Alone Forms: Work Release Note <Martínez Dela Cruz DO - Last Filed: 03/15/20 04:58> Cosign ED Attending Cosignature Attestation: I was immediately available in the department for consultation. This documentation has been reviewed and I agree with assessment and plan. Supervised by Martínez Dela Cruz DO
[2020-03-14 21:47] VITALS: BP 172/80; PULSE 82; RESP 16; O2SAT 100
== END 2020-03-14 21:48 | disposition home or self-care (01) ==
PROVIDERS: Emergency Provider Nurse Practitioner Family; PCP Family Medicine
DX: M25.561 Pain in right knee (principal); M25.562 Pain in left knee; S80.02XA Contusion of left knee, initial encounter; W01.0XXA Fall on same level from slipping, tripping and stumbling without subsequent striking against object, initial encounter
CPT/HCPCS: 73562; 73590; 99283

== ENCOUNTER → 2020-03-25 08:07 | Outpatient (CLI) | payer OTHER, SELFPAY ==
[2020-03-25 09:16] LABS: Hemoglobin A1C% w Est Avg Glu 11.4 % (4.0-6.0)
[2020-03-25 09:43] LABS: Alanine Aminotransferase 16 IU/L (<35); Albumin Globulin Ratio 1.6 (1.0-2.8); Alkaline Phosphatase 118 U/L (38-126); Aspartate Aminotransferase 22 IU/L (14-36); BUN Creatinine Ratio 24.1 (6-22); Bilirubin Total 0.4 mg/dL (0.2-1.3); Blood Urea Nitrogen 14 mg/dL (7-17); Calcium 9.4 mg/dL (8.4-10.2); Carbon Dioxide 26 mmol/L (22-32); Chloride 99 mmol/L (98-107); Cholesterol 220 mg/dL (140-199); Estimated Glomerular Filt Rate > 60.0 mL/min (>60); Globulin 2.5 g/dL (1.7-4.1); Glucose 285 mg/dL (70-100); HDL Cholesterol 40 mg/dL (40-60); HEMOLYSIS < 15 (0-50); Potassium 4.7 mmol/L (3.4-5.1); Sodium 133 mmol/L (137-145); Total Protein 6.5 g/dL (6.3-8.2)
[2020-03-25 09:52] LABS: Triglycerides 624 mg/dL (35-150)
[2020-03-25 10:12] LABS: TSH w/ Reflex to FT4 1.95 uIU/mL (0.47-4.68)
[2020-09-07 10:34] LABS: Appearance Urine UA CLEAR; Bilirubin Urine UA NEGATIVE (NEGATIVE); Glucose Urine UA 1+ g/dL (Negative); Ketones Urine UA NEGATIVE (NEGATIVE); Leukocyte Esterase Urine UA 1+ (NEGATIVE); Nitrite Urine UA NEGATIVE (Negative); Occult Blood Urine UA 3+ (Negative); Protein Urine UA 2+ (Negative); Specific Gravity Urine UA <=1.005 (1.000-1.035); Urobilinogen Urine UA 0.2 E.U./dL (0.2)
[2020-09-07 10:39] LABS: Color Urine UA YELLOW; pH Urine UA 6.5 (4.5-8.0)
[2020-09-07 10:40] LABS: Bacteria Urine Many (>30); Culture Indicated Urine Specimen Cultured; RBC Urine 1-5/HPF (0-5/HPF); Squamous Epithelial Cell Urine 1-5 /HPF (0-5/HPF); WBC Urine 10-30/HPF (0-5/HPF)
== END ==
PROVIDERS: PCP Family Medicine; Referring Provider Family Medicine; Visit Provider Family Medicine
DX: E11.65 Type 2 diabetes mellitus with hyperglycemia (principal); E66.9 Obesity, unspecified; E78.5 Hyperlipidemia, unspecified; I10 Essential (primary) hypertension
CPT/HCPCS: 36415; 80053; 80061; 81001; 83036; 84443; 87077; 87086; 87186

== ENCOUNTER 2020-04-08 13:37 | Emergency (ER) | payer OTHER, SELFPAY ==
[2020-04-08 13:46] VITALS: BP 173/76; PULSE 87; RESP 18; TEMP 36.8; O2SAT 96; BMI 40.7
--- NOTE | 2020-04-08 14:34 | ED.SKABFB ---
HPI - Skin/Abscess/Foreign Bdy <Pilar Barraza PA-C - Last Filed: 04/08/20 19:24> General Chief complaint: Urogenital-Female Stated complaint: boil Time Seen by Provider: 04/08/20 13:56 Source: patient Mode of arrival: Ambulatory Limitations: no limitations History of Present Illness HPI narrative: This is a 60-year-old woman with a history of uncontrolled diabetes, obesity, hypertension, SBO and history of previous abscess. She reports that she noticed something about the size of a pea that was tender on the right side in her private area toward her buttock about 3 days ago. Within about 12 hours she felt that it was the size of a dime and by this morning she said she feels like it could be the size of a finger it is very tender to touch although she cannot see it. She notes that she had a abscess previously on the right side very close to this area she thinks this was 3 or 4 years ago that was incised and drained but that later worsened and required surgical intervention in order to completely address the problem. She said that she was positive for a group B strep infection with this. She says that she has been having chills since yesterday afternoon, has not been able to check her temperature, she says that she has also had a headache since yesterday afternoon that is pretty severe but that Tylenol that she took this morning improved significantly, she says it is not bad enough that she would be here in the emergency department just for the headache she is definitely here because of the concern about the spot on her leg. She notes that she is also fasting every Saturday and has not actually had a meal since around 6:00 p.m. yesterday this is something she is doing by order of her PCP to try to help lower her A1c which is around 11 right now. She denies any fever, nausea, vomiting, diarrhea, shortness of breath, change in appetite, increased fatigue or any other symptoms. MD complaint: abscess/boil Onset (ago): day(s) (3) Tetanus up to date: yes Location: genitals Severity: moderate Related Data Previous Rx's Medication Instructions Recorded citalopram 40 mg tablet 20 mg PO Q DAY #30 tab 05/04/19 metformin 1,000 mg PO BIDCC #180 tab 05/04/19 Disabled Parking Permit #1 ea 07/06/19 gabapentin 300 mg capsule 300 mg PO TID #90 cap 07/21/19 cyclobenzaprine 10 mg tablet 10 mg PO TID PRN #45 tab 08/06/19 lisinopril 5 mg tablet 5 mg PO DAILY #90 tab 08/06/19 empagliflozin 10 mg tablet 10 mg PO DAILY #90 tab 09/07/19 glimepiride 4 mg tablet 8 mg PO Q DAY #180 tab 09/07/19 Disabled Parking #1 ea 03/24/20 triamcinolone acetonide 0.5 % 1 applictn TOP BID #15 gram 03/24/20 topical ointment simvastatin 20 mg tablet 20 mg PO QHS #90 tab 03/28/20 amoxicillin-pot clavulanate 1 tab PO BID #20 tab 04/08/20 [Augmentin] Allergies Allergy/AdvReac Type Severity Reaction Status Date / Time No Known Drug Allergies Allergy Verified 03/24/20 10:49 Review of Systems <Pilar Barraza PA-C - Last Filed: 04/08/20 19:24> Review of Systems Narrative: GENERAL: Positive for intermittent chills since yesterday afternoon, Denies, fatigue, malaise, fever, sweats. HEENT: Denies sinus pain, ear pain, sore throat, difficulty swallowing, dizziness. RESPIRATORY: Denies dyspnea, cough, wheezing, hemoptysis, sputum. CARDIOVASCULAR: Denies chest pain, palpitations, orthopnea, edema, GASTROINTESTINAL: Denies nausea, vomiting, abdominal pain, diarrhea, constipation, melena. : Positive for swelling and tenderness of her right labia that has increased in size in the last 3 days from a pea to the size of a finger. Denies dysuria, frequency, incontinence, hematuria, urinary retention. MUSCULOSKELETAL: denies weakness, joint pain, or bony pain SKIN: Denies rash, skin lesions, or other NEUROLOGIC: Denies weakness, headache, numbness, change in speech, confusion, seizures, incoordination. PSYCHIATRIC: No concerning psychosocial issues. 12 point review of systems is negative except for those stated above Patient History <Pilar Barraza PA-C - Last Filed: 04/08/20 19:24> Medical History (Updated 04/08/20 @ 16:01 by Pilar Barraza PA-C) Ankle fracture (Resolved 1977) Chicken pox (Resolved 1967) Depression (Chronic 1997) Diabetes mellitus (Chronic 2009) Group B streptococcal infection (Resolved 04/2014) History of heavy periods (Resolved) History of heavy periods (Resolved 1979) Hyperlipidemia (Chronic) Hypertriglyceridemia (Chronic) Irregular periods/menstrual cycles (Resolved 1989) Kidney stones (Resolved 1999) Normal Papanicolaou smear (Resolved) Obesity (Chronic) Shoulder pain (Chronic 2014) Uterine cancer (Resolved 2005) Surgical History Anesthesia (Resolved) History of surgery (Resolved 04/2014) History of third molar tooth extraction (Resolved 1973) Status post hysterectomy (Resolved 09/2006) Family History Father Cancer Lung cancer Grandfather Smoker Heart disease Occupational exposure to environmental pollution Grandmother Cancer Mother Cancer Ovarian cancer Breast cancer Sister Age: 63 Heart disease History of heart bypass surgery Diabetes mellitus Social History Smoking Status: Never smoker Smoking Status: Never smoker alcohol intake frequency: 0-2 drinks per day Substance Use Type: does not use Exam <Pilar Barraza PA-C - Last Filed: 04/08/20 19:24> Narrative Exam Narrative: exam of external genitalia was performed with female GENDER STUDIES PROFESSOR in attendance as school crossing guard. GENERAL: 60 year old patient appears stated age. Well-nourished, morbidly obese patient, in mild distress. HEAD: Atraumatic. Normocephalic. EYES: Pupils equal round and reactive. Extraocular motions intact. No scleral icterus. No injection or drainage. ENT: Nose without bleeding, purulent drainage. Throat without erythema, tonsillar hypertrophy or exudate. Airway patent. NECK: Trachea midline. Non tender CARDIOVASCULAR: Regular rate and rhythm without murmurs, gallops, or rubs. RESPIRATORY: Clear to auscultation. Breath sounds equal bilaterally. No wheezes, rales, or rhonchi. GASTROINTESTINAL: Abdomen soft, non-tender, protruberant, non-distended. : External genitalia, normal in appearance on the left. The right labia majora is diffusely enlarged, approximately 5 times the size of the left labia majora (which is normal in appearance). The right labia majora is diffusely tender, and mildly erythematous, it is without open wound, drainage or discharge. EXTREMITIES: No edema or joint tenderness. BACK: Nontender without deformity or crepitance. No flank tenderness. NEURO: AOx3. SKIN: No rash or erythema of visible areas Initial Vital Signs Initial Vital Signs: Vital Signs Temperature 98.2 F 04/08/20 13:46 Pulse Rate 87 04/08/20 13:46 Respiratory Rate 18 04/08/20 13:46 Blood Pressure 173/76 H 04/08/20 13:46 Pulse Oximetry 96 04/08/20 13:46 <Tristan Mcnulty MD - Last Filed: 04/09/20 07:36> Initial Vital Signs Initial Vital Signs: Vital Signs Temperature 98.2 F 04/08/20 13:46 Pulse Rate 87 04/08/20 13:46 Respiratory Rate 18 04/08/20 13:46 Blood Pressure 173/76 H 04/08/20 13:46 Pulse Oximetry 96 04/08/20 13:46 Course <Pilar Barraza PA-C - Last Filed: 04/08/20 19:24> Course Course Narrative: neurology tech advised that there is no distinct fluid collection, no loculated fluid she just sees a significant amount of edema in the area of the patient's complaint of the right labia majora. 15:57 While the patient's labs generally look good and there is no need to perform an I and D today. Discussed this patient with the ED attending Dr. Mcnulty, and based on the patient's history of having to have surgery with a group B strep abscess in the same area we feel it is appropriate to do IV antibiotics here with Unasyn prior to discharge and plan to have her take Augmentin and Bactrim p.o. with close follow-up in 48-72 hours for recheck. 16:15 Orders Ordered: Discontinued Medications Sodium Chloride (Normal Saline 0.9%) 1,000 mls @ 500 mls/hr IV BOLUS ONE Stop: 04/08/20 17:23 Last Infusion: 04/08/20 18:13 Dose: 0 mls/hr Documented by: Admin: 04/08/20 16:15 Dose: 500 mls/hr Documented by: FABIÁN Ampicillin Sodium/Sulbactam (Sodium 3 gm/ Sodium Chloride) 100 mls @ 100 mls/hr IV NOW ONE Stop: 04/08/20 16:16 Last Infusion: 04/08/20 17:40 Dose: 0 mls/hr Documented by: Admin: 04/08/20 16:29 Dose: 100 mls/hr Documented by: FABIÁN Vital Signs Vital signs: Vital Signs - 8 hr 04/08/20 13:46 04/08/20 18:13 Temperature 98.2 F Pulse Rate 87 81 Respiratory Rate 18 18 Blood Pressure 173/76 H 159/75 H Pulse Oximetry 96 97 <Tristan Mcnulty MD - Last Filed: 04/09/20 07:36> Orders Ordered: Discontinued Medications Sodium Chloride (Normal Saline 0.9%) 1,000 mls @ 500 mls/hr IV BOLUS ONE Stop: 04/08/20 17:23 Last Infusion: 04/08/20 18:13 Dose: 0 mls/hr Documented by: Admin: 04/08/20 16:15 Dose: 500 mls/hr Documented by: FABIÁN Ampicillin Sodium/Sulbactam (Sodium 3 gm/ Sodium Chloride) 100 mls @ 100 mls/hr IV NOW ONE Stop: 04/08/20 16:16 Last Infusion: 04/08/20 17:40 Dose: 0 mls/hr Documented by: Admin: 04/08/20 16:29 Dose: 100 mls/hr Documented by: FABIÁN Vital Signs Vital signs: Vital Signs - 8 hr 04/08/20 13:46 04/08/20 18:13 Temperature 98.2 F Pulse Rate 87 81 Respiratory Rate 18 18 Blood Pressure 173/76 H 159/75 H Pulse Oximetry 96 97 MDM - Skin/Abscess/Foreign Bdy <Pilar Barraza PA-C - Last Filed: 04/08/20 19:24> Differential Diagnosis Differential diagnosis: Likely abscess of skin or subcutaneous tissue, cellulitis and other (hydradenitis suppurativa, systemic infection) Medical Records Attestation: I reviewed the patient's medical records. Lab Data Attestation: I reviewed the patient's lab results. Result diagrams: 04/08/20 15:01 04/08/20 15:01 Labs: Lab Results 07/03/20 07/03/20 07/03/20 Range/Units 15:01 15:01 15:01 WBC 11.5 H (4.5-11.0) X10^3/uL RBC 4.17 (4.0-5.2) X10^6/uL Hgb 12.1 (12.0-16.0) g/dL Hct 36.2 (36-46) % MCV 86.8 (80-100) fL MCH 29.1 (26-34) PG MCHC 33.5 (30-36) % RDW 13.7 (11.6-14.8) % Plt Count 208 (150-400) X10^3/uL Neut % (Auto) 83.5 H (50-75) % Lymph % (Auto) 6.5 L (25-40) % [place] % (Auto) 7.3 (3-14) % Eos % (Auto) 1.9 L (2-4) % Baso % (Auto) 0.8 (0-2) % Neut # (Auto) 9600 H (3417-1402) /uL Lymph # (Auto) 700 L (6174-9330) /uL [place] # (Auto) 800 (0-900) /uL Eos # (Auto) 200 (0-450) /uL Baso # (Auto) 100 (0-100) /uL Sodium 132 L (137-145) mmol/L Potassium 3.9 (3.4-5.1) mmol/L Chloride 98 (98-107) mmol/L Carbon Dioxide 28 (22-32) mmol/L BUN 14 (7-17) mg/dL Creatinine 0.64 (0.52-1.04) mg/dL Estimated GFR > 60.0 (>60) mL/min BUN/Creatinine Ratio 21.9 (6-22) Glucose 186 H (70-100) mg/dL Lactate 0.8 (0.7-2.1) mmol/L Calcium 9.1 (8.4-10.2) mg/dL Total Bilirubin 0.6 (0.2-1.3) mg/dL AST 20 (14-36) IU/L ALT 14 (<35) IU/L Alkaline Phosphatase 94 (38-126) U/L Total Protein 6.5 (6.3-8.2) g/dL Albumin 3.7 (3.5-5.0) g/dL Globulin 2.8 (1.7-4.1) g/dL Albumin/Globulin Ratio 1.3 (1.0-2.8) Urine Color Urine Appearance Urine pH (4.5-8.0) Ur Specific [place] (1.000-1.035) Urine Protein (Negative) Urine Glucose (UA) (Negative) g/dL Urine Ketones (NEGATIVE) Urine Occult Blood (Negative) Urine Nitrate (Negative) Urine Bilirubin (NEGATIVE) Urine Urobilinogen (0.2) E.U./dL Ur Leukocyte Esterase (NEGATIVE) Urine RBC (0-5/HPF) Urine WBC (0-5/HPF) Ur Squamous Epith Cells (0-5/HPF) Ur Transition Epith Cell (0-5/HPF) Urine Bacteria (None) Ur Culture Indicated? Micro UA Comment 04/08/20 Range/Units 15:30 WBC (4.5-11.0) X10^3/uL RBC (4.0-5.2) X10^6/uL Hgb (12.0-16.0) g/dL Hct (36-46) % MCV (80-100) fL MCH (26-34) PG MCHC (30-36) % RDW (11.6-14.8) % Plt Count (150-400) X10^3/uL Neut % (Auto) (50-75) % Lymph % (Auto) (25-40) % [place] % (Auto) (3-14) % Eos % (Auto) (2-4) % Baso % (Auto) (0-2) % Neut # (Auto) (6796-1337) /uL Lymph # (Auto) (5303-4834) /uL [place] # (Auto) (0-900) /uL Eos # (Auto) (0-450) /uL Baso # (Auto) (0-100) /uL Sodium (137-145) mmol/L Potassium (3.4-5.1) mmol/L Chloride (98-107) mmol/L Carbon Dioxide (22-32) mmol/L BUN (7-17) mg/dL Creatinine (0.52-1.04) mg/dL Estimated GFR (>60) mL/min BUN/Creatinine Ratio (6-22) Glucose (70-100) mg/dL Lactate (0.7-2.1) mmol/L Calcium (8.4-10.2) mg/dL Total Bilirubin (0.2-1.3) mg/dL AST (14-36) IU/L ALT (<35) IU/L Alkaline Phosphatase (38-126) U/L Total Protein (6.3-8.2) g/dL Albumin (3.5-5.0) g/dL Globulin (1.7-4.1) g/dL Albumin/Globulin Ratio (1.0-2.8) Urine Color Yellow Urine Appearance Slightly cloudy Urine pH 5.0 (4.5-8.0) Ur Specific [place] 1.010 (1.000-1.035) Urine Protein 2+ H (Negative) Urine Glucose (UA) 3+ H (Negative) g/dL Urine Ketones 1+ H (NEGATIVE) Urine Occult Blood Trace-lysed (Negative) Urine Nitrate Negative (Negative) Urine Bilirubin Negative (NEGATIVE) Urine Urobilinogen 0.2 (0.2) E.U./dL Ur Leukocyte Esterase Trace H (NEGATIVE) Urine RBC 1-5/hpf (0-5/HPF) Urine WBC 10-30/hpf H (0-5/HPF) Ur Squamous Epith Cells 5-10 /hpf H (0-5/HPF) Ur Transition Epith Cell 1-5/hpf (0-5/HPF) Urine Bacteria Moderate (10-30) H (None) Ur Culture Indicated? Specimen cultured Micro UA Comment Clue cells present Imaging Data US--soft tissue: Attestation: I personally reviewed and interpreted this imaging study as follows: Radiologist's Impression: [address] [address] Ultrasound Report Signed Patient: Shelbie Snyder JMR#: [id number] : 1Acct:[id number] Age/Sex: 60 / FDate of Service: 04/08/20 Loc: ED Accession Number: [id number] Procedure: US abdomen limited Ordering Provider: Pilar Barraza P.A-C PROCEDURE: US ABDOMEN LIMITED INDICATIONS: RIGHT LABIA MAJORA BOIL; POSSIBLE ABSCESS TECHNIQUE: Real-time scanning was performed of the right labia. COMPARISON: None. FINDINGS: Sonographic images of the area concerned demonstrated no visualized focal fluid collection. Mild soft tissue edema is present. IMPRESSION: No focal fluid collection. Soft tissue edema is present. Dictated by: Kae Thomson M.D. on 04/08/2020 at 16:14 Approved by: Kae Thomson M.D. on 04/08/2020 at 16:15 [facility] Narrative Medical decision making narrative: This is a 60-year-old obese woman with a history of uncontrolled diabetes (A1C 11), small-bowel obstruction, and previous groin abscess positive for group B strep with surgical intervention required presents to the emergency department complaining of swelling and tenderness of her right labia that has increased in size significantly since she first noticed it 3 days ago. Differential diagnoses considered include: Cellulitis, abscess, sepsis, hidradenitis suppurativa, STI, UTI Basic labs and ultrasound were obtained. Labs are grossly unremarkable and blood cultures are not pursued. Ultrasound did not show any evidence of fluid collection, and thus I & D is not warranted. Given the patient's history and the relatively rapid progression of her symptoms, and after discussion with the attending physician, felt it most appropriate to jump start outpatient oral antibiotic therapy with IV antibiotics in the emergency department prior to discharge. She was provided with a fluid bolus and IV Unasyn. Also advising the patient to follow up for re-evaluation in 48-72 hours to ensure that she is getting improvement with the antibiotics. Emergency return precautions were provided. All questions were answered. <Tristan Mcnulty MD - Last Filed: 04/09/20 07:36> Lab Data Labs: Lab Results 04/08/20 04/08/20 04/08/20 Range/Units 15:01 15:01 15:01 WBC 11.5 H (4.5-11.0) X10^3/uL RBC 4.17 (4.0-5.2) X10^6/uL Hgb 12.1 (12.0-16.0) g/dL Hct 36.2 (36-46) % MCV 86.8 (80-100) fL MCH 29.1 (26-34) PG MCHC 33.5 (30-36) % RDW 13.7 (11.6-14.8) % Plt Count 208 (150-400) X10^3/uL Neut % (Auto) 83.5 H (50-75) % Lymph % (Auto) 6.5 L (25-40) % [place] % (Auto) 7.3 (3-14) % Eos % (Auto) 1.9 L (2-4) % Baso % (Auto) 0.8 (0-2) % Neut # (Auto) 9600 H (9859-3486) /uL Lymph # (Auto) 700 L (1804-7406) /uL [place] # (Auto) 800 (0-900) /uL Eos # (Auto) 200 (0-450) /uL Baso # (Auto) 100 (0-100) /uL Sodium 132 L (137-145) mmol/L Potassium 3.9 (3.4-5.1) mmol/L Chloride 98 (98-107) mmol/L Carbon Dioxide 28 (22-32) mmol/L BUN 14 (7-17) mg/dL Creatinine 0.64 (0.52-1.04) mg/dL Estimated GFR > 60.0 (>60) mL/min BUN/Creatinine Ratio 21.9 (6-22) Glucose 186 H (70-100) mg/dL Lactate 0.8 (0.7-2.1) mmol/L Calcium 9.1 (8.4-10.2) mg/dL Total Bilirubin 0.6 (0.2-1.3) mg/dL AST 20 (14-36) IU/L ALT 14 (<35) IU/L Alkaline Phosphatase 94 (38-126) U/L Total Protein 6.5 (6.3-8.2) g/dL Albumin 3.7 (3.5-5.0) g/dL Globulin 2.8 (1.7-4.1) g/dL Albumin/Globulin Ratio 1.3 (1.0-2.8) Urine Color Urine Appearance Urine pH (4.5-8.0) Ur Specific [place] (1.000-1.035) Urine Protein (Negative) Urine Glucose (UA) (Negative) g/dL Urine Ketones (NEGATIVE) Urine Occult Blood (Negative) Urine Nitrate (Negative) Urine Bilirubin (NEGATIVE) Urine Urobilinogen (0.2) E.U./dL Ur Leukocyte Esterase (NEGATIVE) Urine RBC (0-5/HPF) Urine WBC (0-5/HPF) Ur Squamous Epith Cells (0-5/HPF) Ur Transition Epith Cell (0-5/HPF) Urine Bacteria (None) Ur Culture Indicated? Micro UA Comment 04/08/20 Range/Units 15:30 WBC (4.5-11.0) X10^3/uL RBC (4.0-5.2) X10^6/uL Hgb (12.0-16.0) g/dL Hct (36-46) % MCV (80-100) fL MCH (26-34) PG MCHC (30-36) % RDW (11.6-14.8) % Plt Count (150-400) X10^3/uL Neut % (Auto) (50-75) % Lymph % (Auto) (25-40) % [place] % (Auto) (3-14) % Eos % (Auto) (2-4) % Baso % (Auto) (0-2) % Neut # (Auto) (4948-6603) /uL Lymph # (Auto) (7769-6663) /uL [place] # (Auto) (0-900) /uL Eos # (Auto) (0-450) /uL Baso # (Auto) (0-100) /uL Sodium (137-145) mmol/L Potassium (3.4-5.1) mmol/L Chloride (98-107) mmol/L Carbon Dioxide (22-32) mmol/L BUN (7-17) mg/dL Creatinine (0.52-1.04) mg/dL Estimated GFR (>60) mL/min BUN/Creatinine Ratio (6-22) Glucose (70-100) mg/dL Lactate (0.7-2.1) mmol/L Calcium (8.4-10.2) mg/dL Total Bilirubin (0.2-1.3) mg/dL AST (14-36) IU/L ALT (<35) IU/L Alkaline Phosphatase (38-126) U/L Total Protein (6.3-8.2) g/dL Albumin (3.5-5.0) g/dL Globulin (1.7-4.1) g/dL Albumin/Globulin Ratio (1.0-2.8) Urine Color Yellow Urine Appearance Slightly cloudy Urine pH 5.0 (4.5-8.0) Ur Specific [place] 1.010 (1.000-1.035) Urine Protein 2+ H (Negative) Urine Glucose (UA) 3+ H (Negative) g/dL Urine Ketones 1+ H (NEGATIVE) Urine Occult Blood Trace-lysed (Negative) Urine Nitrate Negative (Negative) Urine Bilirubin Negative (NEGATIVE) Urine Urobilinogen 0.2 (0.2) E.U./dL Ur Leukocyte Esterase Trace H (NEGATIVE) Urine RBC 1-5/hpf (0-5/HPF) Urine WBC 10-30/hpf H (0-5/HPF) Ur Squamous Epith Cells 5-10 /hpf H (0-5/HPF) Ur Transition Epith Cell 1-5/hpf (0-5/HPF) Urine Bacteria Moderate (10-30) H (None) Ur Culture Indicated? Specimen cultured Micro UA Comment Clue cells present Discharge Plan Departure Patient Disposition: Home Clinical Impression: Abscess or cellulitis of groin, Groin swelling Groin pain Qualifiers: Laterality: right Qualified Code(s): R10.31 - Right lower quadrant pain Discharge Date/Time: 04/08/20 18:31 Instructions: DI for Cellulitis -- Adult, DI for Skin Abscess Activity Restrictions/Additional Instructions: Thank you for letting us to be part of her care in the emergency department today. There is no evidence of an emergent or life threatening illness at this time, but follow up with your doctor in 1-2 days is recommended nonetheless to continue to rule out serious underlying causes of your symptoms. Please call the office for an appointment. Please return to the Emergency Department for any worsening or persistent symptoms. Please take medications as directed. The area of swelling that you have is not consistent with a abscess that is drainable, it is possible that it represents a cellulitis or infection of the skin and soft tissue is also possible that it may turn into an abscess later if it is untreated. We also gave you IV antibiotics in the ED, and you should continue with oral antibiotics. I am prescribing antibiotics for you today (Augmentin) which I e-prescribed and sent to the [facility] in [place]. Please keep in mind that both infections and antibiotics can affect your blood sugar levels so pay close attention to your symptoms and how you are feeling. It is also very important that you follow-up with your primary care physician, in the next 1-3 days and if necessary they can refer you to surgery if that is warranted and if you have persistent symptoms. If you do develop fever, chills, shortness of breath, nausea, vomiting, diarrhea, fatigue or any other symptoms please do not hesitate to seek medical care. It is very important that you follow up with your PCP or if necessary in the ED for re-evaluation in the next 48-72 hours to see how you are doing and if the antibiotics have reduced the swelling and inflammation. Prescriptions: New amoxicillin-pot clavulanate [Augmentin] 875-125 mg tablet 1 tab PO BID Qty: 20 RF: 0 No Action metformin 1,000 mg tablet 1,000 mg PO BIDCC Qty: 180 RF: 2 citalopram 40 mg tablet 20 mg PO Q DAY Qty: 30 RF: 1 (DME) Disabled Parking Permit Qty: 1 RF: 0 gabapentin 300 mg capsule 300 mg PO TID Qty: 90 RF: 0 lisinopril 5 mg tablet 5 mg PO DAILY Qty: 90 RF: 1 cyclobenzaprine 10 mg tablet 10 mg PO TID PRN (Reason: muscle spasm) Qty: 45 RF: 0 triamcinolone acetonide 0.5 % ointment 1 applictn TOP BID Qty: 15 RF: 0 simvastatin 20 mg tablet 20 mg PO QHS Qty: 90 RF: 1 (DME) Disabled Parking Qty: 1 RF: 0 glimepiride [Amaryl] 4 mg tablet 8 mg PO Q DAY Qty: 180 RF: 1 Jardiance 10 mg tablet 10 mg PO DAILY Qty: 90 RF: 1 Referrals: Gia Michael DO [Primary Care Provider] - Stand Alone Forms: Work Release Note
[2020-04-08 15:11] LABS: Add Manual Diff / Slide Review NO; Basophils Absolute Auto 100 /uL (0-100); Basophils Percent Auto 0.8 % (0-2); Eosinophils Absolute Auto 200 /uL (0-450); Eosinophils Percent Auto 1.9 % (2-4); Hematocrit 36.2 % (36-46); Hemoglobin 12.1 g/dL (12.0-16.0); Lymphocytes Absolute Auto 700 /uL (1100-4500); Lymphocytes Percent Auto 6.5 % (25-40); Mean Corpuscular HGB Conc 33.5 % (30-36); Mean Corpuscular Hemoglobin 29.1 PG (26-34); Mean Corpuscular Volume 86.8 fL (80-100); Monocytes Absolute Auto 800 /uL (0-900); Monocytes Percent Auto 7.3 % (3-14); Neutrophils Absolute Auto 9600 /uL (1500-7000); Neutrophils Percent Auto 83.5 % (50-75); Platelet Count 208 X10^3/uL (150-400); Red Blood Cell Count 4.17 X10^6/uL (4.0-5.2); Red Cell Distribution Width 13.7 % (11.6-14.8); White Blood Cell Count 11.5 X10^3/uL (4.5-11.0)
[2020-04-08 15:21] LABS: Lactate (Lactic Acid) 0.8 mmol/L (0.7-2.1)
[2020-04-08 15:22] LABS: Alanine Aminotransferase 14 IU/L (<35); Albumin 3.7 g/dL (3.5-5.0); Albumin Globulin Ratio 1.3 (1.0-2.8); Alkaline Phosphatase 94 U/L (38-126); Aspartate Aminotransferase 20 IU/L (14-36); BUN Creatinine Ratio 21.9 (6-22); Bilirubin Total 0.6 mg/dL (0.2-1.3); Blood Urea Nitrogen 14 mg/dL (7-17); Calcium 9.1 mg/dL (8.4-10.2); Carbon Dioxide 28 mmol/L (22-32); Chloride 98 mmol/L (98-107); Estimated Glomerular Filt Rate > 60.0 mL/min (>60); Globulin 2.8 g/dL (1.7-4.1); Glucose 186 mg/dL (70-100); HEMOLYSIS < 15 (0-50); Potassium 3.9 mmol/L (3.4-5.1); Sodium 132 mmol/L (137-145); Total Protein 6.5 g/dL (6.3-8.2)
--- NOTE | 2020-04-08 15:23 | DI.US.S_ITS ---
PROCEDURE: US ABDOMEN LIMITED INDICATIONS: RIGHT LABIA MAJORA BOIL; POSSIBLE ABSCESS TECHNIQUE: Real-time scanning was performed of the right labia. COMPARISON: None. FINDINGS: Sonographic images of the area concerned demonstrated no visualized focal fluid collection. Mild soft tissue edema is present. IMPRESSION: No focal fluid collection. Soft tissue edema is present. Dictated by: Kae Thomson M.D. on 04/08/2020 at 16:14 Approved by: Kae Thomson M.D. on 04/08/2020 at 16:15
[2020-04-08 15:48] LABS: Bilirubin Urine UA NEGATIVE (NEGATIVE); Color Urine UA YELLOW; Glucose Urine UA 3+ g/dL (Negative); Ketones Urine UA 1+ (NEGATIVE); Leukocyte Esterase Urine UA TRACE (NEGATIVE); Nitrite Urine UA NEGATIVE (Negative); Occult Blood Urine UA TRACE-LYSED (Negative); Protein Urine UA 2+ (Negative); Urobilinogen Urine UA 0.2 E.U./dL (0.2)
[2020-04-08 16:03] LABS: Appearance Urine UA Slightly Cloudy; Bacteria Urine Moderate (10-30); Culture Indicated Urine Specimen Cultured; RBC Urine 1-5/HPF (0-5/HPF); Squamous Epithelial Cell Urine 5-10 /HPF (0-5/HPF); Transitional Epi Cells Urine 1-5/HPF (0-5/HPF); Urine Comments CLUE CELLS PRESENT; WBC Urine 10-30/HPF (0-5/HPF)
[2020-04-08] MEDS: SODIUM CHLORIDE 0.9% 1,000 ML 500 ML IV (16:15)
[2020-04-08] MEDS: AMPICILLIN/SULBACTAM 3 GM 3 GM in SODIUM CHLORIDE 0.9% 100 ML IV (16:29)
[2020-04-08 18:13] VITALS: BP 159/75; PULSE 81; RESP 18; O2SAT 97
== END 2020-04-08 18:31 | disposition home or self-care (01) ==
PROVIDERS: Emergency Provider Student in an Organized Health Care Education/Training Program; PCP Family Medicine
DX: L02.214 Cutaneous abscess of groin (principal); R19.09 Other intra-abdominal and pelvic swelling, mass and lump; R10.31 Right lower quadrant pain; E11.9 Type 2 diabetes mellitus without complications; E66.9 Obesity, unspecified; I10 Essential (primary) hypertension
CPT/HCPCS: 36415; 76705; 80053; 81001; 83605; 85025; 87086; 87147; 96365; 99284; J0295

== ENCOUNTER → 2020-04-18 11:40 | Outpatient (CLI) | payer OTHER, SELFPAY | LOC: LAB 11:44 | PROVIDERS: PCP Family Medicine; Visit Provider Specialist | DX: N76.2 Acute vulvitis (principal) | CPT/HCPCS: 87070; 87077; 87147; 87186; 87205 ==

== ENCOUNTER → 2020-09-07 07:49 | Outpatient (CLI) | payer OTHER, SELFPAY ==
[2020-09-07 08:18] LABS: Hemoglobin A1C% w Est Avg Glu 11.5 % (4.0-6.0)
[2020-09-07 08:25] LABS: BUN Creatinine Ratio 27.1 (6-22); Blood Urea Nitrogen 16 mg/dL (7-17); Calcium 9.9 mg/dL (8.4-10.2); Carbon Dioxide 33 mmol/L (22-32); Chloride 95 mmol/L (98-107); Estimated Glomerular Filt Rate > 60.0 mL/min (>60); Glucose 280 mg/dL (70-100); HEMOLYSIS < 15 (0-50); Sodium 133 mmol/L (137-145)
[2020-09-07 10:34] LABS: Add Manual Diff / Slide Review NO; Basophils Absolute Auto 0 /uL (0-100); Basophils Percent Auto 0.6 % (0-2); Eosinophils Absolute Auto 300 /uL (0-450); Hematocrit 40.1 % (36-46); Hemoglobin 13.4 g/dL (12.0-16.0); Lymphocytes Absolute Auto 1100 /uL (1100-4500); Lymphocytes Percent Auto 15.5 % (25-40); Mean Corpuscular HGB Conc 33.5 % (30-36); Mean Corpuscular Hemoglobin 28.9 PG (26-34); Mean Corpuscular Volume 86.5 fL (80-100); Monocytes Absolute Auto 500 /uL (0-900); Neutrophils Absolute Auto 5400 /uL (1500-7000); Neutrophils Percent Auto 72.9 % (50-75); Platelet Count 261 X10^3/uL (150-400); Red Blood Cell Count 4.63 X10^6/uL (4.0-5.2); Red Cell Distribution Width 12.9 % (11.6-14.8); White Blood Cell Count 7.4 X10^3/uL (4.5-11.0)
== END ==
LOC: LAB 07:50
PROVIDERS: PCP Family Medicine; Referring Provider Family Medicine; Visit Provider Family Medicine
DX: E11.65 Type 2 diabetes mellitus with hyperglycemia (principal); E78.5 Hyperlipidemia, unspecified; I10 Essential (primary) hypertension; N12 Tubulo-interstitial nephritis, not specified as acute or chronic
CPT/HCPCS: 36415; 80048; 83036; 85025

== ENCOUNTER → 2020-10-04 10:17 | Outpatient (CLI) | payer OTHER, SELFPAY ==
[2020-10-04 11:01] LABS: COVID19 -Nasal RAPID Negative (Negative)
[2020-10-04 11:15] LABS: Influenza A - CEPHEID Flu A NEGATIVE (NEGATIVE); Influenza B - CEPHEID Flu B NEGATIVE (NEGATIVE)
--- NOTE | 2020-10-04 11:26 | DI.RAD.S_ITS ---
PROCEDURE: XR CHEST 2V INDICATIONS: Progressive exertional fatigue TECHNIQUE: 2 views of the chest were acquired. COMPARISON: [facility], , CHEST 1 VIEW, 06/15/2016, 11:48. FINDINGS: Surgical changes and devices: None. Lungs and pleura: Lungs are mild alveolar edema. Etiology is uncertain. No pleural effusions or pneumothorax. Mediastinum: Mediastinal contours are normal. Heart size is normal. Bones and chest wall: No suspicious bony abnormalities. Soft tissues appear unremarkable. IMPRESSION: Heart size is not enlarged but there appears to be a mild alveolar edema pattern. This is best seen on the lateral view. Please correlate for potentially early cardiogenic etiology. Dictated by: Gennaro Lopez M.D. on 10/04/2020 at 14:49 Approved by: Gennaro Lopez M.D. on 10/04/2020 at 14:50
[2020-10-04 12:24] LABS: Add Manual Diff / Slide Review NO; Basophils Absolute Auto 0 /uL (0-100); Basophils Percent Auto 0.6 % (0-2); Eosinophils Absolute Auto 300 /uL (0-450); Eosinophils Percent Auto 4.3 % (2-4); Hematocrit 39.8 % (36-46); Hemoglobin 13.4 g/dL (12.0-16.0); Lymphocytes Absolute Auto 1100 /uL (1100-4500); Lymphocytes Percent Auto 17.9 % (25-40); Mean Corpuscular HGB Conc 33.6 % (30-36); Mean Corpuscular Hemoglobin 29.2 PG (26-34); Mean Corpuscular Volume 86.8 fL (80-100); Monocytes Absolute Auto 400 /uL (0-900); Monocytes Percent Auto 6.1 % (3-14); Neutrophils Absolute Auto 4300 /uL (1500-7000); Neutrophils Percent Auto 71.1 % (50-75); Platelet Count 261 X10^3/uL (150-400); Red Blood Cell Count 4.59 X10^6/uL (4.0-5.2); Red Cell Distribution Width 13.7 % (11.6-14.8); White Blood Cell Count 6.1 X10^3/uL (4.5-11.0)
[2020-10-04 12:35] LABS: Alanine Aminotransferase 17 IU/L (<35); Albumin Globulin Ratio 1.3 (1.0-2.8); Alkaline Phosphatase 103 U/L (38-126); Aspartate Aminotransferase 25 IU/L (14-36); BUN Creatinine Ratio 18.8 (6-22); Bilirubin Total 0.4 mg/dL (0.2-1.3); Blood Urea Nitrogen 13 mg/dL (7-17); Calcium 10.1 mg/dL (8.4-10.2); Carbon Dioxide 36 mmol/L (22-32); Chloride 99 mmol/L (98-107); Estimated Glomerular Filt Rate > 60.0 mL/min (>60); Globulin 3.2 g/dL (1.7-4.1); Glucose 177 mg/dL (70-100); HEMOLYSIS < 15 (0-50); Sodium 137 mmol/L (137-145); Total Protein 7.2 g/dL (6.3-8.2)
[2020-10-04 12:43] LABS: NT-proBNP (BNP-Adult 18+) 109 pg/mL (<125)
[2020-10-04 13:04] LABS: Hemoglobin A1C% w Est Avg Glu 10.9 % (4.0-6.0)
[2020-10-04 13:35] LABS: Creatinine Urine Random 18.5 mg/dL
[2020-10-04 14:08] LABS: TSH w/ Reflex to FT4 0.54 uIU/mL (0.47-4.68)
[2020-10-04 14:18] LABS: Microalbumi Creatinin Ratio Ur 5048.6 ug/mg CR (<30); Microalbumin Urine Random 93.4 mg/dL (0-1.6)
== END ==
PROVIDERS: PCP Family Medicine; Referring Provider Family Medicine; Visit Provider Family Medicine
DX: Z11.9 Encounter for screening for infectious and parasitic diseases, unspecified (principal); Z20.828 Contact with and (suspected) exposure to other viral communicable diseases; R05 Cough; R06.00 Dyspnea, unspecified; E11.65 Type 2 diabetes mellitus with hyperglycemia; I10 Essential (primary) hypertension
CPT/HCPCS: 36415; 71046; 80053; 82043; 82570; 83036; 83880; 84443; 85025; 87502; 87635

== ENCOUNTER → 2020-10-27 08:01 | Outpatient (CLI) | payer OTHER, SELFPAY ==
--- NOTE | 2020-10-27 08:03 | DI.ECHO.S_ITS ---
[place] [facility]---------+ [facility] +---------+ : : [address] : [address] : : : : [id number] : : : : Phone: [phone]+ Echocardiogram Report + + :Name: MARYCARMEN ARCOS Study Date: 10/27/2020 Height: 63 in : :[facility] ReadingLocation: Weight: 232 lb : : Gender: Female BSA: 2.1 m2 : :: 1960 Age: 60 yrs BP: 174/89 mmHg: :Ordering Physician: JULIOCESAR, : :ZOLTAN Performed By: Edelmira Gilmore : :Referring: ZOLTAN GANDARA : + + Interpretation Summary The left ventricle is normal in size and wall thickness. The ejection fraction is estimated to be 55-60%. The right ventricle is normal in size and function. No significant valvular pathology seen. The ascending aorta is mildly enlarged. The IVC is of normal diameter and collapses greater than 50% with a sniff. This suggests a low right atrial pressure of 3 mm Hg. Procedure: A two-dimensional transthoracic echocardiogram with color flow and Doppler was performed. The study quality was technically adequate. There is no prior echocardiogram noted for this patient. The patient was in sinus rhythm with heart rates between 74-87 bpm during the exam. Left Ventricle: The left ventricle is normal in size and wall thickness. There is no thrombus. The ejection fraction is estimated to be 55-60%. There are no focal wall motion abnormalities. MV E/A: 1.0 Med Peak E' Christos: 6.1 cm/sec E/E' med: 14.9. Right Ventricle: The right ventricle is normal in size and function. Atria: Both atria are normal in size. The interatrial septum grossly appears intact with no obvious evidence for an atrial septal defect. Mitral Valve: The mitral valve is normal in structure and function. There is trace mitral regurgitation. Aortic Valve: The aortic valve is not well visualized. The aortic valve is grossly normal. The aortic valve is trileaflet. The aortic valve opens well. The aortic valve is mildly calcified. There is discrete nodular thickening of the left coronary cusp. There is no aortic valve stenosis. No aortic regurgitation is present. Tricuspid Valve: The tricuspid valve is not well visualized, but is grossly normal. There is trace tricuspid regurgitation. Pulmonary artery pressures cannot be estimated because of the lack of a measurable TR jet velocity. Pulmonic Valve: The pulmonic valve is not well visualized. There is no pulmonic valvular regurgitation. Great Vessels: The aortic root is normal size. The ascending aorta is mildly enlarged. The IVC is of normal diameter and collapses greater than 50% with a sniff. This suggests a low right atrial pressure of 3 mm Hg. Pericardium/ Pleura There is no pericardial effusion. There is no pleural effusion. MMode/2D Measurements & Calculations LVIDd: 4.7 cm LVOT diam: 2.1 cm LVIDs: 2.9 cm Ao root diam: 2.7 cm FS: 38.7 % asc Aorta Diam: 3.7 cm EPSS: 0.88 cm Ao Arch Diam (Prox Trans): 2.9 cm IVSd: 1.1 cm LVPWd: 0.97 cm LV pruitt. diameter/BSA (cm/m^2): 2.3 LV sys. diameter/BSA (cm/m^2): 1.4 LA A2 area: 21.2 cm2 RA long axis: 4.9 cm LA A4 area: 18.5 cm2 RA area: 14.5 cm2 LA length (vol): 5.4 cm RA vol: 36.7 ml LA vol: 61.1 ml RA : 17.8 ml/m2 LA vol index: 29.7 ml/m2 IVC diam: 1.5 cm RVD1 (basal): 3.0 cm TAPSE: 2.3 cm Doppler Measurements & Calculations Ao V2 max: 155.7 cm/sec LVOT Max Christos: 113.1 cm/sec Ao V2 mean: 111.0 cm/sec LV V1 max P.1 mmHg Ao max P.7 mmHg LV V1 VTI: 25.1 cm Ao mean P.3 mmHg ALEYDA(I,D): 2.8 cm2 Ao V2 VTI: 30.8 cm ALEYDA(V,D): 2.5 cm2 sev ratio: 0.81 ALEYDA indexed to BSA (cm^2/m^2): 1.3 MV E max christos: 91.6 cm/sec PA V2 max: 96.5 cm/sec MV A max christos: 91.1 cm/sec PA V2 mean: 59.8 cm/sec MV E/A: 1.0 PA mean P.7 mmHg Med Peak E' Christos: 6.1 cm/sec PA pr(Accel): 25.9 mmHg E/E' med: 14.9 Lat Peak E' Christos: 6.8 cm/sec E/E' lat: 13.5 E/e' average: 14.2 MV dec time: 0.24 sec SV(LVOT): 85.4 ml Reading Physician:02:53 PM
== END ==
PROVIDERS: PCP Family Medicine; Referring Provider Family Medicine; Visit Provider Family Medicine
DX: R00.2 Palpitations (principal); R06.00 Dyspnea, unspecified; I10 Essential (primary) hypertension; E78.5 Hyperlipidemia, unspecified
CPT/HCPCS: 93306

== ENCOUNTER → 2021-08-18 14:54 | Outpatient (CLI) | payer OTHER, SELFPAY ==
[2021-08-18 16:30] LABS: Hemoglobin A1C% w Est Avg Glu 12.1 % (4.0-6.0)
[2021-08-18 16:42] LABS: Alanine Aminotransferase 18 IU/L (<35); Albumin 3.8 g/dL (3.5-5.0); Albumin Globulin Ratio 1.4 (1.0-2.8); Alkaline Phosphatase 107 U/L (38-126); Aspartate Aminotransferase 24 IU/L (14-36); BUN Creatinine Ratio 33.9 (6-22); Bilirubin Total 0.4 mg/dL (0.2-1.3); Blood Urea Nitrogen 19 mg/dL (7-17); Calcium 8.7 mg/dL (8.4-10.2); Carbon Dioxide 23 mmol/L (22-32); Chloride 97 mmol/L (98-107); Estimated Glomerular Filt Rate > 60.0 mL/min (>60); Globulin 2.7 g/dL (1.7-4.1); HEMOLYSIS < 15 (0-50); Potassium 4.4 mmol/L (3.4-5.1); Sodium 131 mmol/L (137-145); Total Protein 6.5 g/dL (6.3-8.2)
[2021-08-18 17:12] LABS: Glucose 492 mg/dL (80-110)
== END ==
PROVIDERS: PCP Family Medicine; Referring Provider Family Medicine; Visit Provider Family Medicine
DX: E66.01 Morbid (severe) obesity due to excess calories (principal); Z68.41 Body mass index [BMI] 40.0-44.9, adult; I10 Essential (primary) hypertension; E11.319 Type 2 diabetes mellitus with unspecified diabetic retinopathy without macular edema
CPT/HCPCS: 36415; 80053; 83036

== ENCOUNTER → 2024-03-04 11:03 | Outpatient (CLI) | payer OTHER, SELFPAY ==
--- NOTE | 2024-03-04 11:04 | DI.RAD.S_ITS ---
PROCEDURE: XR CHEST 2V INDICATIONS: Cough TECHNIQUE: 2 views of the chest were acquired. COMPARISON: [facility], CR, XR CHEST 2V, 10/04/2020, 12:52. FINDINGS: Surgical changes and devices: None. Lungs and pleura: Lungs are clear. No pleural effusions or pneumothorax. Mediastinum: Mediastinal contours are normal. Heart size is normal. Bones and chest wall: No suspicious bony abnormalities. Soft tissues appear unremarkable. IMPRESSION: No acute pulmonary process. Dictated by: Kae Thomson M.D. on 03/04/2024 at 13:35 Approved by: Kae Thomson M.D. on 03/04/2024 at 13:36
== END ==
PROVIDERS: PCP Physician Assistant; Referring Provider Nurse Practitioner Family; Visit Provider Nurse Practitioner Family
DX: R05.9 Cough, unspecified (principal)
CPT/HCPCS: 71046

== ENCOUNTER → 2025-03-15 15:43 | Outpatient (CLI) | payer OTHER, SELFPAY ==
--- NOTE | 2025-03-15 15:45 | DI.RAD.S_ITS ---
PROCEDURE: XR LUMBAR SPINE MIN 4V INDICATIONS: BACK PAIN-BILATERAL HIP PAIN TECHNIQUE: 5 views of the lumbar spine were acquired, including bilateral oblique views. COMPARISON: [facility], , XR LUMBAR SPINE 2-3V, 07/03/2019, 9:16. FINDINGS: Bones: 5 nonrib-bearing vertebrae are present. Grade 1 anterolisthesis of L4 on L5 due to facet arthrosis. Moderate disc height loss at L5-S1 and mild disc height loss at remaining levels. Diffuse facet arthrosis. No vertebral body compression fractures. No suspicious bony lesions. Soft tissues: Overlying bowel gas pattern is normal. No suspicious soft tissue calcifications. Oblique images: No pars defects. IMPRESSION: Mild to moderate, multilevel degenerative disc disease and diffuse facet arthrosis. Grade 1 anterolisthesis of L4 on L5 due to facet arthrosis. Dictated by: Kevyn Milian M.D. on 03/15/2025 at 16:23 Approved by: Kevyn Milian M.D. on 03/15/2025 at 16:24
== END ==
PROVIDERS: PCP Physician Assistant; Referring Provider Physical Medicine & Rehabilitation; Visit Provider Physical Medicine & Rehabilitation
DX: M43.16 Spondylolisthesis, lumbar region (principal); M51.369 Other intervertebral disc degeneration, lumbar region without mention of lumbar back pain or lower extremity pain; M51.379 Other intervertebral disc degeneration, lumbosacral region without mention of lumbar back pain or lower extremity pain; M47.816 Spondylosis without myelopathy or radiculopathy, lumbar region; M54.9 Dorsalgia, unspecified; M25.551 Pain in right hip; M25.552 Pain in left hip
CPT/HCPCS: 72110

== ENCOUNTER → 2025-07-30 12:41 | Outpatient (CLI) | payer OTHER, SELFPAY ==
--- NOTE | 2025-07-30 12:44 | DI.RAD.S_ITS ---
PROCEDURE: XR SHOULDER LT MIN 2V INDICATIONS: Other chronic pain TECHNIQUE: 3 views of the shoulder were acquired. COMPARISON: None. FINDINGS: Bones: No fractures or dislocations. Moderate acromioclavicular joint osteoarthritic changes are seen. Qeni-jr-mahqnuec glenohumeral joint osteoarthritic changes also noted. No suspicious bony lesions. Visualized ribs appear intact. Soft tissues: No suspicious soft tissue calcifications. IMPRESSION: Ctsj-zs-xaycdane left shoulder joint osteoarthritis. No fracture or dislocation. No gross soft tissue abnormalities. Dictated by: Ariel Saul M.D. on 07/30/2025 at 13:21 Approved by: Ariel Saul M.D. on 07/30/2025 at 13:21
--- NOTE | 2025-07-30 12:44 | DI.RAD.S_ITS ---
PROCEDURE: XR SHOULDER RT MIN 2V INDICATIONS: Other chronic pain TECHNIQUE: 3 views of the shoulder were acquired. COMPARISON: None. FINDINGS: Bones: No fractures or dislocations. Moderate acromioclavicular joint osteoarthritic changes are seen. Mild glenohumeral joint osteoarthritic changes also noted. No suspicious bony lesions. Visualized ribs appear intact. Soft tissues: No suspicious soft tissue calcifications. IMPRESSION: Sclu-tk-tvvzsooy right shoulder joint osteoarthritis. No fracture or dislocation. No gross soft tissue abnormalities. Dictated by: Ariel Saul M.D. on 07/30/2025 at 13:13 Approved by: Ariel Saul M.D. on 07/30/2025 at 13:21
== END ==
PROVIDERS: PCP Physician Assistant; Referring Provider Physician Assistant; Visit Provider Physician Assistant
DX: M19.011 Primary osteoarthritis, right shoulder (principal); M19.012 Primary osteoarthritis, left shoulder; M25.511 Pain in right shoulder; M25.512 Pain in left shoulder; G89.29 Other chronic pain
CPT/HCPCS: 73030

== ENCOUNTER → 2025-08-05 13:10 | Outpatient (CLI) | payer OTHER, SELFPAY ==
--- NOTE | 2025-08-05 13:12 | DI.MRI.S_ITS ---
PROCEDURE: MR LUMBAR SPINE WO CON INDICATIONS: PROGRESSIVE AXIAL LOW BACK PAIN L4/5 SLIP L5-S1 FORAMINAL TECHNIQUE: Noncontrast sagittal T1 spin echo and T2 fast echo, sagittal STIR, and T2 fast spin echo through the lumbar spine. In cases with scoliosis, additional coronal T2 fast spin echo may be performed. COMPARISON: None. FINDINGS: Image quality: Excellent. Alignment and Curvature: 4 mm anterolisthesis of L4 on L5. Bone Marrow: Marrow is of normal overall signal. No acute vertebral body compression fractures. Spinal Cord: Conus medullaris terminates at the L1 level. Visualized cord demonstrates normal signal and size. Paraspinous Soft Tissues: No paravertebral masses. T12-L1: Minimal disc bulge. No canal stenosis or foraminal stenosis. L1-L2: Early facet hypertrophy. No canal stenosis or foraminal stenosis. L2-L3: Minimal disc bulge. Mild facet hypertrophy. No canal stenosis or foraminal stenosis. L3-L4: Minimal disc bulge. Facet hypertrophy. No canal stenosis or foraminal stenosis. L4-L5: There is disc bulge and exuberant facet hypertrophy and mild anterolisthesis of L4 on L5. Additionally, there is a right paracentral free disc fragment which extends slightly above the disc space. This is most easily seen on sagittal T2 STIR image 9 of series 4. It is also present on sagittal image 9 of T2 series 2. It measures at least 1.4 cm in craniocaudal dimension. Its axial dimensions are approximately 1.1 cm x 0.6 cm. It is severely impinges on the right L5 nerve root in the right lateral recess. It extends somewhat into the foramen with resultant severe impingement on the right L4 nerve root in the foramen. Reference T2 sagittal image 7 of series 2. There is bilateral facet hypertrophy. There is mild central canal stenosis. L5-S1: Chronic disc height loss. Mild central posterior disc protrusion. No significant canal stenosis. There is severe left foraminal narrowing with left foraminal L5 nerve root impingement. Reference sagittal image 14 of T2 series 2. IMPRESSION: 1. Underlying multilevel facet arthropathy. 2. At L4-L5, there is a right paracentral extruded disc fragment which impinges on the left L5 nerve root in the left lateral recess and severely impinges on the left L4 nerve root in the left foramen. 3. There is severe left foraminal narrowing at L5-S1 with left foraminal L5 nerve root impingement. Dictated by: Damien Fofana M.D. on 08/05/2025 at 14:16 Approved by: Damien Fofana M.D. on 08/05/2025 at 14:23
== END ==
LOC: MRI 13:11
PROVIDERS: PCP Physician Assistant; Referring Provider Physician Assistant; Visit Provider Physical Medicine & Rehabilitation
DX: M48.061 Spinal stenosis, lumbar region without neurogenic claudication (principal); M47.816 Spondylosis without myelopathy or radiculopathy, lumbar region; M51.26 Other intervertebral disc displacement, lumbar region; M48.07 Spinal stenosis, lumbosacral region
CPT/HCPCS: 72148

== ENCOUNTER → 2025-08-10 08:29 | Outpatient (CLI) | payer OTHER, SELFPAY ==
--- NOTE | 2025-08-10 08:30 | DI.MG.S_ITS ---
MM screening mammo BI: 08/10/2025. BI-RADS: 1 CLINICAL: 65-year old female for bilateral screening mammogram. Tyrer-Cuzick lifetime risk of 5.8%. No personal or first-degree family history of breast cancer. History of ovarian cancer in one first-degree relative. PRIOR EXAMS: None. This is a baseline mammogram. MAMMOGRAPHY TECHNIQUE: 2D and 3D (tomosynthesis) digital mammographic views obtained, with additional images as needed for full coverage. Current study was also evaluated with a Computer Aided Detection (CAD) system. DENSITY B. There are scattered areas of fibroglandular density. MAMMOGRAPHY FINDINGS Bilateral: No suspicious mass, asymmetry, microcalcification, or other abnormality seen. IMPRESSION: * No evidence of malignancy. RECOMMENDATIONS Bilateral * Annual screening mammography. OVERALL ASSESSMENT CATEGORY BI-RADS-1: Negative. The [employer] recommends annual screening mammography beginning at age 40 for women with average risk of breast cancer. ELECTRONICALLY SIGNED: Matilde Carl M.D. on 08/10/2025 at 04:09:14 PM PT Interpreting Station ID: [id number]
== END ==
LOC: MAMMO 08:29
PROVIDERS: PCP Physician Assistant; Referring Provider Physician Assistant; Visit Provider Physician Assistant
DX: Z12.31 Encounter for screening mammogram for malignant neoplasm of breast (principal); Z80.41 Family history of malignant neoplasm of ovary
CPT/HCPCS: 77063; 77067

== ENCOUNTER → 2025-08-20 10:45 | Outpatient (CLI) | payer OTHER, SELFPAY ==
--- NOTE | 2025-08-20 10:47 | DI.MRI.S_ITS ---
PROCEDURE: MR SHOULDER RT WO CON INDICATIONS: r/o rtc tear TECHNIQUE: Noncontrast oblique coronal T2 fast spin echo with fat saturation, oblique sagittal T1 spin echo and T2 fast spin echo with fat saturation, axial T1 spin echo and T2 fast spin echo with fat saturation through the shoulder. COMPARISON: [facility], CR, XR SHOULDER RT 2+ VIEWS, 07/30/2025, 12:43. FINDINGS: Image quality: Excellent. Rotator cuff: Severe tendinosis of the supraspinatus and infraspinatus. There is high-grade, bursal sided and interstitial tear at the critical zone, of the junction supraspinatus and infraspinatus (08:14). Additional low-grade articular sided tear at the footprint of the infraspinatus. The teres minor is unremarkable. The subscapularis is unremarkable. No muscle edema or fatty atrophy. Bones and bursae: Moderate degenerative changes of the acromioclavicular joint. Type 1 acromion. No os acromiale. Mild subacromial/subdeltoid bursitis. Mild subchondral cystic changes at the greater tuberosity, reactive. No acute fracture. No acute fracture or dislocation. No focal chondral defect of the glenohumeral articulation. Capsule and soft tissues: The labrum is grossly intact. Mild tenosynovitis of the extra-articular biceps tendon with longitudinal split tear. Severe tendinosis of the intra-articular biceps tendon. Trace glenohumeral effusion. No intra-articular body. Fibrosis at the rotator cuff interval, raising concern for adhesive capsulitis. IMPRESSION: 1. Severe tendinosis of the supraspinatus, infraspinatus, and the intra- articular biceps tendon. 2. High-grade tear at the critical zone, of the junction of the supraspinatus and infraspinatus. 3. Moderate degenerative changes of the acromioclavicular joint. 4. Findings suggestive of adhesive capsulitis. Dictated by: Hope Hope M.D. on 08/20/2025 at 15:03 Approved by: Hope Hope M.D. on 08/20/2025 at 15:12
== END ==
LOC: MRI 10:45
PROVIDERS: Family Provider Physician Assistant; PCP Physician Assistant; Referring Provider Orthopaedic Surgery; Visit Provider Orthopaedic Surgery
DX: M75.111 Incomplete rotator cuff tear or rupture of right shoulder, not specified as traumatic (principal); M75.51 Bursitis of right shoulder; M65.811 Other synovitis and tenosynovitis, right shoulder; M25.511 Pain in right shoulder
CPT/HCPCS: 73221